=== PATIENT | female | born 1950 | race Caucasian/White ===

== ENCOUNTER 2018-12-04 10:00 | Outpatient (CLI) | payer MEDICARE, OTHER, SELFPAY ==
[2018-12-04 11:23] LABS: HCT 39.8 % (36.0-46.0); Mean Corp. HGB Concentration 32.7 g/dL (32.0-36.0); Mean Corpuscular Hemoglobin 28.2 pg (27.0-33.0); Mean Corpuscular Volume 86.3 fL (80-95); Mean Platelet Volume 9.9 fL (8.0-11.0); Platelet Count 347 x1000/uL (130-400); RBC 4.61 m/cumm (4.00-5.20); RBC Distribution Width 13.8 % (11.7-14.6); White Blood Cell Count 6.16 k/cumm (4.4-10.8)
[2018-12-04 11:49] LABS: ALT 28 U/L (12-78); AST 22 U/L (15-37); Albumin 3.8 g/dL (3.4-5.0); Alkaline Phosphatase 63 U/L (46-116); Anion Gap 9.3 mmol/L (3-11); BUN 16 mg/dL (7-18); Bilirubin, Total 0.3 mg/dL (0.2-1.0); CO2 28.7 mmol/L (21.0-32.0); CREATININE 0.77 mg/dL (0.55-1.02); Calcium 9.5 mg/dL (8.5-10.1); Chloride 103 mmol/L (98-107); Glucose 83 mg/dL (70-100); Potassium 4.3 mmol/L (3.5-5.1); Sodium 141 mmol/L (136-145); TSH 3.06 uIU/mL (0.358-3.74)
[2018-12-04 18:47] LABS: Vitamin B12 581 pg/mL (193-986)
== END 2018-12-04 10:20 ==
PROVIDERS: PCP Family Medicine; Visit Provider Family Medicine
DX: R53.83 Other fatigue (principal); E53.8 Deficiency of other specified B group vitamins
CPT/HCPCS: 80053; 85027; 82607; 84443

== ENCOUNTER 2019-02-12 09:37 | Outpatient (CLI) | payer MEDICARE, OTHER, SELFPAY ==
[2019-02-12 12:59] LABS: Iron 51 ug/dL (50-175); Total Iron Binding Capacity 355 ug/dL (250-450); Transferrin Sat 14 % (15-50)
[2019-02-12 13:12] LABS: Ferritin 33 ng/mL (8-388)
== END 2019-02-12 09:57 ==
PROVIDERS: PCP Family Medicine; Visit Provider Family Medicine
DX: E61.1 Iron deficiency (principal)
CPT/HCPCS: 82728; 83540; 83550

== ENCOUNTER 2020-07-05 13:02 | Outpatient (REF) | payer MEDICARE, SELFPAY ==
[2020-07-05 13:41] LABS: Iron 57 ug/dL (50-170); Total Iron Binding Capacity 425 ug/dL (250-450); Transferrin Sat 13 % (15-50)
[2020-07-05 14:02] LABS: Abs Immature Grans 0.02 10^3/uL (0.0-0.06); Absolute Basophil Count 0.09 10^3/uL (0.0-0.2); Absolute Eosinophil Count 0.51 10^3/uL (0.0-0.7); Absolute Lymphocyte Count 2.28 10^3/uL (1.2-3.4); Absolute Monocyte Count 0.58 10^3/uL (0.1-0.8); Absolute Neutrophil Count 3.89 10^3/uL (1.2-6.7); Basophils % 1.2; Eosinophils % 6.9; HCT 41.1 % (36.0-46.0); HGB 13.2 g/dL (11.2-15.7); Immature Grans % 0.3; Lymphocytes % 30.9; MCH 27.3 pg (27.0-33.0); MCHC 32.1 % (32.0-36.0); MCV 85.1 fL (80-95); MPV 9.9 fL (8.0-11.0); Monocytes % 7.9; Neutrophils % 52.8; Nucleated RBC 0 %; Platelet Count 360 10^3/uL (130-400); RBC 4.83 10^6/uL (3.93-5.22); RDW 14.2 % (11.7-14.6); RDW-SD 43.7 fL; WBC 7.37 10^3/uL (4.4-10.8)
[2020-07-05 14:06] LABS: ALT 22 U/L (14-59); AST 15 U/L (15-37); Albumin 4.1 g/dL (3.4-5.0); Alkaline Phosphatase 75 U/L (46-116); Anion Gap 5.3 mmol/L (3-11); BUN 22 mg/dL (7-18); Bilirubin, Total 0.4 mg/dL (0.2-1.0); CO2 29.7 mmol/L (21.0-32.0); CREATININE 0.92 mg/dL (0.55-1.02); Calcium 9.5 mg/dL (8.5-10.1); Calculated LDL 158 mg/dL (<100); Chloride 105 mmol/L (98-107); Cholesterol 242 mg/dL (<200); Ferritin 27 ng/mL (8-252); Glucose 90 mg/dL (74-106); HDL Cholesterol 61 mg/dL (40-60); Magnesium 1.9 mg/dL (1.8-2.4); Potassium 3.9 mmol/L (3.5-5.1); Sodium 140 mmol/L (136-145); Total Protein 7.3 g/dL (6.4-8.2); Triglyceride 118 mg/dL (<150); Vitamin B12 687 pg/mL (193-986)
== END 2020-07-05 13:22 ==
LOC: LBN 13:02
PROVIDERS: PCP Family Medicine; Visit Provider Family Medicine
DX: R53.83 Other fatigue (principal); E83.42 Hypomagnesemia; Z98.890 Other specified postprocedural states; Z96.651 Presence of right artificial knee joint
CPT/HCPCS: 80053; 80061; 82607; 82728; 83540; 83550; 83735; 85025

== ENCOUNTER 2020-12-14 10:45 | Outpatient (CLI) | payer MEDICARE, SELFPAY ==
[2020-12-14 21:36] LABS: COVID-19 RT-PCR UVMMC Result Negative (Negative)
== END 2020-12-14 10:46 | disposition home or self-care (01) ==
LOC: LBO 10:46
PROVIDERS: PCP Family Medicine; Visit Provider Family Medicine
DX: Z20.822 Contact with and (suspected) exposure to COVID-19 (principal)
CPT/HCPCS: U0003; U0005

== ENCOUNTER 2020-12-17 14:40 | Outpatient (REF) | payer MEDICARE, SELFPAY ==
[2020-12-19 15:24] LABS: COVID-19 RT-PCR UVMMC Result Negative (Negative)
== END 2020-12-17 14:41 | disposition home or self-care (01) ==
LOC: LBN 14:40
PROVIDERS: PCP Family Medicine; Visit Provider Emergency Medicine
DX: Z20.822 Contact with and (suspected) exposure to COVID-19 (principal)
CPT/HCPCS: U0003

== ENCOUNTER 2021-04-27 17:01 | Outpatient (REF) | payer MEDICARE, SELFPAY ==
[2021-04-27 13:06] LABS: HCT 39.2 % (36.0-46.0); HGB 11.8 g/dL (11.2-15.7); MCH 25.1 pg (27.0-33.0); MCHC 30.1 % (32.0-36.0); MCV 83.2 fL (80-95); MPV 9.8 fL (8.0-11.0); Platelet Count 334 10^3/uL (130-400); RBC 4.71 10^6/uL (3.93-5.22); RDW 19.6 % (11.7-14.6); RDW-SD 59.1 fL; WBC 6.65 10^3/uL (4.4-10.8)
== END 2021-04-27 17:02 | disposition home or self-care (01) ==
LOC: LBN 17:01
PROVIDERS: PCP Family Medicine; Visit Provider Family Medicine
DX: R53.83 Other fatigue (principal)
CPT/HCPCS: 85027

== ENCOUNTER 2021-06-18 16:00 | Outpatient (REF) | payer MEDICARE, SELFPAY ==
[2021-06-20 00:46] LABS: COVID-19 RT-PCR UVMMC Result Negative (Negative)
== END 2021-06-18 16:01 | disposition home or self-care (01) ==
LOC: LBN 16:00
PROVIDERS: PCP Family Medicine; Visit Provider Physician Assistant
DX: J02.9 Acute pharyngitis, unspecified (principal); Z20.822 Contact with and (suspected) exposure to COVID-19
CPT/HCPCS: U0003; U0005; 87070

== ENCOUNTER 2021-06-28 15:20 | Outpatient (REF) | payer MEDICARE, SELFPAY ==
[2021-06-29 19:55] LABS: COVID-19 RT-PCR UVMMC Result Negative (Negative)
== END 2021-06-28 15:21 | disposition home or self-care (01) ==
LOC: LBN 15:20
PROVIDERS: PCP Family Medicine; Visit Provider Family Medicine
DX: Z20.822 Contact with and (suspected) exposure to COVID-19 (principal)
CPT/HCPCS: U0003; U0005

== ENCOUNTER 2021-06-30 16:29 | Outpatient (REF) | payer MEDICARE, SELFPAY ==
[2021-06-30 19:32] LABS: Abs Immature Grans 0.04 10^3/uL (0.0-0.06); Absolute Monocyte Count 0.57 10^3/uL (0.1-0.8); Basophils % 0.9; Eosinophils % 2.9; HCT 40.5 % (36.0-46.0); HGB 12.8 g/dL (11.2-15.7); Immature Grans % 0.4; Lymphocytes % 22.3; MCH 26.9 pg (27.0-33.0); MCHC 31.6 % (32.0-36.0); MCV 85.1 fL (80-95); MPV 9.8 fL (8.0-11.0); Monocytes % 5.1; Neutrophils % 68.4; Nucleated RBC 0 %; Platelet Count 376 10^3/uL (130-400); RBC 4.76 10^6/uL (3.93-5.22); RDW 15.4 % (11.7-14.6); RDW-SD 48.4 fL; WBC 11.22 10^3/uL (4.4-10.8)
[2021-06-30 19:34] LABS: Iron 51 ug/dL (50-170); Total Iron Binding Capacity 328 ug/dL (250-450); Transferrin Sat 16 % (15-50)
[2021-06-30 19:43] LABS: Absolute Eosinophil Count 0.33 10^3/uL (0.0-0.7); Absolute Neutrophil Count 7.67 10^3/uL (1.2-6.7)
[2021-06-30 19:44] LABS: ESR 29 mm/hr (0-30)
[2021-06-30 19:48] LABS: ALT 16 U/L (14-59); AST 19 U/L (15-37); Albumin 4.1 g/dL (3.4-5.0); Alkaline Phosphatase 70 U/L (46-116); Anion Gap 13.2 mmol/L (3-11); BUN 10 mg/dL (7-18); Bilirubin, Total 0.4 mg/dL (0.2-1.0); CO2 25.8 mmol/L (21.0-32.0); CREATININE 0.9 mg/dL (0.55-1.02); Calcium 9.4 mg/dL (8.5-10.1); Chloride 103 mmol/L (98-107); Ferritin 73 ng/mL (8-252); Glucose 74 mg/dL (74-106); Potassium 4.1 mmol/L (3.5-5.1); Sodium 142 mmol/L (136-145); TSH 2.59 uIU/mL (0.36-3.74); Total Protein 7.3 g/dL (6.4-8.2)
== END 2021-06-30 16:30 | disposition home or self-care (01) ==
LOC: LBN 16:29
PROVIDERS: PCP Family Medicine; Visit Provider Family Medicine
DX: R53.83 Other fatigue (principal); Z98.890 Other specified postprocedural states
CPT/HCPCS: 80053; 85652; 82728; 83540; 83550; 84443; 85025

== ENCOUNTER 2021-09-14 19:17 | Outpatient (REF) | payer MEDICARE, SELFPAY ==
[2021-09-15 20:16] LABS: COVID-19 RT-PCR UVMMC Result Negative (Negative)
== END 2021-09-14 19:18 | disposition home or self-care (01) ==
LOC: LBN 19:17
PROVIDERS: PCP Nurse Practitioner Family; Visit Provider Family Medicine
DX: Z20.822 Contact with and (suspected) exposure to COVID-19 (principal)
CPT/HCPCS: U0003; U0005

== ENCOUNTER 2021-10-10 07:58 | Outpatient (REF) | payer MEDICARE, SELFPAY ==
[2021-10-11 03:05] LABS: COVID-19 RT-PCR UVMMC Result Negative (Negative)
== END 2021-10-10 07:59 | disposition home or self-care (01) ==
LOC: LBN 07:58
PROVIDERS: PCP Nurse Practitioner Family; Visit Provider Family Medicine
DX: Z20.822 Contact with and (suspected) exposure to COVID-19 (principal)
CPT/HCPCS: U0003; U0005

== ENCOUNTER 2021-11-02 19:52 | Outpatient (REF) | payer MEDICARE, SELFPAY ==
[2021-11-04 10:17] LABS: COVID-19 RT-PCR UVMMC Result Negative (Negative)
== END 2021-11-02 19:53 | disposition home or self-care (01) ==
LOC: LBN 19:52
PROVIDERS: PCP Nurse Practitioner Family; Visit Provider Nurse Practitioner Family
DX: Z20.822 Contact with and (suspected) exposure to COVID-19 (principal)
CPT/HCPCS: U0003; U0005

== ENCOUNTER 2022-11-12 16:31 | Inpatient (IN) | payer MEDICARE, SELFPAY ==
[2022-11-12] VITALS (27 sets, daily range): BP systolic 112–154; BP diastolic 56–119; PULSE 73–107; RESP 12–34; TEMP 36.6–37.3; O2SAT 90–97
--- NOTE | 2022-11-12 16:30 | RT.EKG_ITS ---
APPROVED REPORT Exam: Resting ECG Reason for Exam: sob Patient Location: E HR:87 bpm ECG Measurements Heart Rate 87 AXIS MT 125 P 23 QRSd 93 QRS -10 QT 388 T -3 QTc 466 Conclusion Sinus rhythm...normal P axis, V-rate 60- 99
--- NOTE | 2022-11-12 17:00 | DI.RAD_ITS ---
Exam(s) XR PORTABLE CHEST AP EXAM: XR PORTABLE CHEST AP CLINICAL HISTORY: sob, Flu + TECHNIQUE: 2D digital imaging was performed. COMPARISON: CR CHEST 2 VIEWS PA,LAT from 05/02/2017 FINDINGS: A small to moderate size hiatal hernia is noted LUNGS: The bilateral patchy infiltrates. No pleural abnormality seen. HEART: Normal size. AORTA: Normal diameter. Calcification at arch. BONES: Unremarkable for age. Soft tissues: Unremarkable. IMPRESSION: Patchy bilateral infiltrates. DATA REPOSITORY: RADIATION DOSE DELIVERED:
[2022-11-12 17:17] LABS: Abs Immature Grans 0.07 10^3/uL (0.0-0.06); Absolute Basophil Count 0.05 10^3/uL (0.0-0.2); Absolute Eosinophil Count 0.59 10^3/uL (0.0-0.7); Absolute Monocyte Count 0.59 10^3/uL (0.1-0.8); Basophils % 0.5; Eosinophils % 5.9; HCT 38.2 % (36.0-46.0); HGB 12.2 g/dL (11.2-15.7); Immature Grans % 0.7; MCH 26.6 pg (27.0-33.0); MCHC 31.9 % (32.0-36.0); MCV 83 fL (80-95); MPV 9.2 fL (8.0-11.0); Monocytes % 5.9; Platelet Count 378 10^3/uL (130-400); RBC 4.58 10^6/uL (3.93-5.22); RDW 14.5 % (11.7-14.6); RDW-SD 44.1 fL
--- NOTE | 2022-11-12 17:26 | ED.GENADUL_ITS ---
Discharge Plan Disposition Patient Disposition: Admit to [facility] Discharge Details Chief Complaint: SOB Clinical Impression: Influenza A, Pneumonia, Hypoxia Primary Care Provider: Tina Rock ED Provider: Speedy Benitez [place] Meds and New Rx's Prescriptions: No Action cholecalciferol (vitamin D3) 25 mcg (1,000 unit) capsule 25 mcg PO DAILY biotin 5,000 mcg tablet,disintegrating 10,000 mcg PO DAILY Fish Oil 340-1,000 mg capsule 1 cap PO DAILY melatonin 10 mg tablet 10 mg PO HS PRN oseltamivir 75 mg capsule 75 mg PO BID 5 Days Qty: 10 0RF albuterol sulfate 1.25 mg/3 mL solution for nebulization 1.25 mg inhalation TID PRN (Reason: shortness of breath or wheezing) Qty: 90 0RF escitalopram oxalate [Lexapro] 20 mg tablet 10 - 20 mg PO DAILY Qty: 90 3RF fluticasone propionate [Flovent HFA] 110 mcg/actuation HFA aerosol inhaler 110 mcg Inhalation BID PRN (Reason: bronchospasm) Qty: 1 6RF albuterol sulfate 90 mcg/actuation HFA aerosol inhaler 2 puff IH QID PRN (Reason: shortness of breath or wheezing) Qty: 18 6RF amoxicillin 500 mg tablet 2,000 mg PO ONCE Qty: 16 2RF Rx Instructions: take 1 hour before procedure clonazepam 0.5 mg tablet 0.25 - 0.5 mg PO QHS PRN (Reason: insomnia) Qty: 30 2RF oxybutynin chloride 5 mg tablet 5 mg PO DAILY Qty: 90 3RF cetirizine [Zyrtec] 10 mg tablet 10 mg PO DAILY PRN (Reason: allergy symptoms) Qty: 90 3RF amlodipine 5 mg tablet 5 mg PO DAILY Qty: 90 3RF omeprazole 20 mg capsule,delayed release(DR/EC) 20 mg PO DAILY PRN (Reason: gerd) Qty: 90 1RF sertraline 25 mg tablet 25 mg PO DAILY Qty: 90 3RF Hold Instructions: Changed by Provider Rx Instructions: Take 1 tablet daily in addition to the 100mg tablet sertraline 100 mg tablet 100 mg PO DAILY Qty: 90 3RF Rx Instructions: Take 1 tablet daily in addition to the 25mg tablet sennosides [Senokot] 1 TAB tablet 4 tab PO HS Medical Decision Making 72-year-old female flu a positive presents for worsening cough and shortness of breath. O2 sat is in the mid 80s on room air, she does require 2 L nasal cannula to keep O2 sat above 93%. Clinically she appears well, nontoxic. Plan to obtain IV access, obtain routine screening laboratory values, chest x-ray, flu, RSV, COVID swab. Will provide IV Solu-Medrol as well as a duo and albuterol neb. Patient received neb treatments, heart rate now 108, wheezing clear, increased airflow but O2 sat still remains in the mid 80s if she is taken off of her oxygen. Laboratory values reveal no evidence of leukocytosis. Her potassium is 2.9. Will replenish both with oral and IV potassium. Creatinine 0.8 with a GFR of 77.75. COVID and RSV negative. Flu a positive. X-ray reveals bilateral pneumonia. Positive, with bilateral pneumonia, hypoxia, will likely require admission. We will add on a lactate, procalcitonin, blood cultures, give IV Rocephin and azithromycin. Case discussed with our hospitalist team, Dr. Man, who is agreeable to admission. This documentation was generated using [employer] dictation system, please disregard any oddities of phrase or misspellings. Medical Records Medical records reviewed: Yes I reviewed the patient's medical records. Imaging Data Radiologic Study: Attestation: I personally reviewed and interpreted this imaging study as follows: Imaging: X-Ray Radiologist's impression: PROCEDURE INFORMATION: Exam: XR Chest Exam date and time: 11/12/2022 5:01 PM Age: 72 years old Clinical indication: Other: SOB, flu + TECHNIQUE: Imaging protocol: Radiologic exam of the chest. Views: 1 view. COMPARISON: CR CHEST 2 VIEWS PA,LAT 02/05/2017 12:56 FINDINGS: Lungs: Bilateral patchy infiltrates. Pleural spaces: Unremarkable. No pleural effusion. No pneumothorax. Heart/Mediastinum: Cardiomegaly. Retrocardiac gastric hernia. Vasculature: Atherosclerotic disease. Bones/joints: Unremarkable for patient's age. IMPRESSION: Bilateral pneumonia Lab Data Lab results reviewed: Yes I reviewed the patient's lab results. Labs: 11/12/22 18:35 Blood Blood Culture - Pending 11/12/22 18:25 Blood Blood Culture - Pending Laboratory Tests Range/Units 11/12/22 11/12/22 11/12/22 16:55 16:55 17:15 WBC (4.4-10.8) 10^3/uL 10.00 RBC (3.93-5.22) 10^6/uL 4.58 Hgb (11.2-15.7) g/dL 12.2 Hct (36.0-46.0) % 38.2 MCV (80-95) fL 83 MCH (27.0-33.0) pg 26.6 L MCHC (32.0-36.0) % 31.9 L RDW (11.7-14.6) % 14.5 Plt Count (130-400) 10^3/uL 378 MPV (8.0-11.0) fL 9.2 Immature Gran % 0.7 Neutrophils % 70.0 Lymphocytes % 17.0 Monocytes % 5.9 Eosinophils % 5.9 Basophils % 0.5 Nucleated RBC % (0.0-0.3) % 0.0 Absolute Neutrophils (1.2-6.7) 10^3/uL 7.00 H Absolute Lymphocytes (1.2-3.4) 10^3/uL 1.70 Absolute Monocytes (0.1-0.8) 10^3/uL 0.59 Absolute Eosinophils (0.0-0.7) 10^3/uL 0.59 Absolute Basophils (0.0-0.2) 10^3/uL 0.05 VBG Lactate (0.6-1.4) mmol/L Sodium (136-145) mmol/L 144 Potassium (3.5-5.1) mmol/L 2.9 L Chloride (98-107) mmol/L 108 H Carbon Dioxide (21.0-32.0) mmol/L 27.3 Anion Gap (3-11) mmol/L 8.7 BUN (7-18) mg/dL 16 Creatinine (0.55-1.02) mg/dL 0.8 Est GFR (CKD-EPI 2020) (mL/min/1.73m2) 77.75 Glucose (74-106) mg/dL 114 H Calcium (8.5-10.1) mg/dL 9.3 Total Bilirubin (0.2-1.0) mg/dL 0.4 AST (15-37) U/L 40 H ALT (14-59) U/L 29 Alkaline Phosphatase (46-116) U/L 100 Total Protein (6.4-8.2) g/dL 7.8 Albumin (3.4-5.0) g/dL 3.3 L Procalcitonin ng/mL COVID-19 Source Nasopharynx SARS-CoV-2 (PCR) (Negative) Negative Influenza Type A (PCR) (Negative) Positive A Influenza Type B (PCR) (Negative) Negative RSV (PCR) (Negative) Negative Range/Units 11/12/22 18:35 WBC (4.4-10.8) 10^3/uL RBC (3.93-5.22) 10^6/uL Hgb (11.2-15.7) g/dL Hct (36.0-46.0) % MCV (80-95) fL MCH (27.0-33.0) pg MCHC (32.0-36.0) % RDW (11.7-14.6) % Plt Count (130-400) 10^3/uL MPV (8.0-11.0) fL Immature Gran % Neutrophils % Lymphocytes % Monocytes % Eosinophils % Basophils % Nucleated RBC % (0.0-0.3) % Absolute Neutrophils (1.2-6.7) 10^3/uL Absolute Lymphocytes (1.2-3.4) 10^3/uL Absolute Monocytes (0.1-0.8) 10^3/uL Absolute Eosinophils (0.0-0.7) 10^3/uL Absolute Basophils (0.0-0.2) 10^3/uL VBG Lactate (0.6-1.4) mmol/L 2.1 H Sodium (136-145) mmol/L Potassium (3.5-5.1) mmol/L Chloride (98-107) mmol/L Carbon Dioxide (21.0-32.0) mmol/L Anion Gap (3-11) mmol/L BUN (7-18) mg/dL Creatinine (0.55-1.02) mg/dL Est GFR (CKD-EPI 2020) (mL/min/1.73m2) Glucose (74-106) mg/dL Calcium (8.5-10.1) mg/dL Total Bilirubin (0.2-1.0) mg/dL AST (15-37) U/L ALT (14-59) U/L Alkaline Phosphatase (46-116) U/L Total Protein (6.4-8.2) g/dL Albumin (3.4-5.0) g/dL Procalcitonin ng/mL < 0.1 COVID-19 Source SARS-CoV-2 (PCR) (Negative) Influenza Type A (PCR) (Negative) Influenza Type B (PCR) (Negative) RSV (PCR) (Negative) ECG Data Attestation: I personally reviewed and interpreted this ECG (s) as follows: Interpretation: Sinus rhythm, ventricular rate of 87. No STEMI. HPI General Mode of arrival: ambulatory . Date/Time Provider Initiated Documentation: 11/12/22 16:46 . Limitations to Documentation: no limitations . Information obtained by: patient and family . HPI Narrative: This is a 72-year-old female, past medical history of hypertension, anxiety, hyperlipidemia, GERD, which she describes as mild asthma, developed flulike symptoms 1 week ago, diagnosed with flu a 6 days ago, initiated Tamiflu and finished the medication yesterday, reports worsening and ongoing cough, shortness of breath. She reports she had a fever last weekend but that has to resolved. Denies headache, chest pain, abdominal pain, nausea, vomiting, pain or swelling in her calves. She took [id number] Mucinex with little relief of her symptoms. She received a neb machine 2 days ago and has used her home neb machine once daily with little relief. Related Data Home Medications Medication Instructions Recorded Confirmed sennosides 8.6 mg tablet (Senokot) 4 tab PO HS 04/15/15 11/12/22 biotin 5,000 mcg disintegrating 10,000 mcg PO DAILY 01/16/22 11/12/22 tablet cholecalciferol (vitamin D3) 25 25 mcg PO DAILY 01/16/22 11/12/22 mcg (1,000 unit) capsule melatonin 10 mg tablet 10 mg PO HS PRN 01/16/22 11/12/22 omega-3 fatty acids-fish oil 340 1 cap PO DAILY 01/16/22 11/12/22 mg-1,000 mg capsule (Fish Oil) fluticasone propionate 110 110 mcg inhalation BID PRN 02/20/22 11/12/22 mcg/actuation HFA aerosol inhaler bronchospasm #1 ea (Flovent HFA) albuterol sulfate 90 mcg/actuation 2 puff inhalation QID PRN 02/22/22 11/12/22 aerosol inhaler shortness of breath or wheezing #18 grams amoxicillin 500 mg tablet 2,000 mg PO ONCE #16 tabs 05/16/22 11/12/22 clonazepam 0.5 mg tablet 0.25 - 0.5 mg PO QHS PRN insomnia 07/25/22 11/12/22 #30 tabs oxybutynin chloride 5 mg tablet 5 mg PO DAILY #90 tab-caps 08/07/22 11/12/22 amlodipine 5 mg tablet 5 mg PO DAILY #90 tabs 09/06/22 11/12/22 cetirizine 10 mg tablet (Zyrtec) 10 mg PO DAILY PRN allergy 09/06/22 11/12/22 symptoms #90 tabs omeprazole 20 mg capsule,delayed 20 mg PO DAILY PRN gerd #90 09/06/22 11/12/22 release tab-caps sertraline 100 mg tablet 100 mg PO DAILY #90 tabs 09/18/22 11/12/22 sertraline 25 mg tablet 25 mg PO DAILY #90 tabs 09/18/22 11/12/22 Lexapro 20 mg tablet (escitalopram 10 - 20 mg PO DAILY #90 tabs 11/08/22 11/12/22 oxalate) albuterol sulfate 1.25 mg/3 mL 1.25 mg (3 mL) inhalation TID PRN 11/08/22 11/12/22 solution for nebulization shortness of breath or wheezing #90 mL oseltamivir 75 mg capsule 75 mg PO BID 5 days #10 caps 11/08/22 11/12/22 Previous Rx's Medication Instructions Recorded fluticasone propionate 110 110 mcg inhalation BID PRN 02/20/22 mcg/actuation HFA aerosol inhaler bronchospasm #1 ea (Flovent HFA) albuterol sulfate 90 mcg/actuation 2 puff inhalation QID PRN 02/22/22 aerosol inhaler shortness of breath or wheezing #18 grams amoxicillin 500 mg tablet 2,000 mg PO ONCE #16 tabs 05/16/22 clonazepam 0.5 mg tablet 0.25 - 0.5 mg PO QHS PRN insomnia 07/25/22 #30 tabs oxybutynin chloride 5 mg tablet 5 mg PO DAILY #90 tab-caps 08/07/22 amlodipine 5 mg tablet 5 mg PO DAILY #90 tabs 09/06/22 cetirizine 10 mg tablet (Zyrtec) 10 mg PO DAILY PRN allergy 09/06/22 symptoms #90 tabs omeprazole 20 mg capsule,delayed 20 mg PO DAILY PRN gerd #90 09/06/22 release tab-caps sertraline 100 mg tablet 100 mg PO DAILY #90 tabs 09/18/22 sertraline 25 mg tablet 25 mg PO DAILY #90 tabs 09/18/22 Lexapro 20 mg tablet (escitalopram 10 - 20 mg PO DAILY #90 tabs 11/08/22 oxalate) albuterol sulfate 1.25 mg/3 mL 1.25 mg (3 mL) inhalation TID PRN 11/08/22 solution for nebulization shortness of breath or wheezing #90 mL oseltamivir 75 mg capsule 75 mg PO BID 5 days #10 caps 11/08/22 Allergies Allergy/AdvReac Type Severity Reaction Status Date / Time hydrochlorothiazide Allergy Severe RASH Verified 11/12/22 16:40 latex Allergy Severe Skin Rash Verified 11/12/22 16:40 morphine AdvReac Intermediate Verified 11/12/22 16:40 respiratory depression on low dose venlafaxine AdvReac Intermediate INCREASED Verified 11/12/22 16:40 BP atenolol AdvReac Mild PALPITATION Verified 11/12/22 16:40 S bupropion AdvReac Mild Does not Verified 11/12/22 16:40 tolerate well lisinopril AdvReac Mild COUGH Verified 11/12/22 16:40 General Stated Complaint: SOB DARIAN: 3 Review of Systems Constitutional Constitutional: Denies fatigue, Reports fever(s) (Resolved) and Denies weakness ENT Ears, Nose, Mouth, and Throat: Denies neck pain Cardiovascular Cardiovascular: Denies chest pain and Reports dyspnea Respiratory Respiratory: Reports cough and Reports dyspnea Gastrointestinal Gastrointestinal: Denies abdominal pain, Denies diarrhea, Reports loose stools and Denies vomiting Genitourinary Genitourinary: Denies dysuria Musculoskeletal Musculoskeletal: Denies back pain and Denies neck pain Integumentary/Breasts Skin/Breast: Denies rash Neurologic Neurologic: Denies weakness Endocrine Endocrine: Denies fatigue Hematologic/Lymphatic Hematologic/Lymphatic: Denies easy bleeding and Denies easy bruising PFSH All Active Problems (Updated 11/12/22 @ 19:23 by SARA Briceño) Pneumonia (Acute) Hypoxia (Acute) Hypokalemia (Acute) Influenza A (Acute) Essential hypertension (Chronic) Hyperlipidemia (Chronic) Generalized anxiety disorder (Chronic) Major depressive disorder, recurrent (Chronic) GERD (gastroesophageal reflux disease) (Chronic) OCD (obsessive compulsive disorder) (Chronic) Osteopenia (Chronic) Dexa 2004. Does not desire further eval Reactive airway disease (Chronic) Benign paroxysmal positional vertigo (Chronic) Chronic rhinitis (Chronic) Urge incontinence (Chronic) Anosmia (Chronic) Since Moderna vaccine in 2020 Medical History COVID-19 virus infection (~12/2021) Hyperparathyroidism Vitamin B 12 deficiency Surgical History S/P parathyroidectomy (03/10/05) S/P NICOLAS-BSO (total abdominal hysterectomy and bilateral salpingo-oophorectomy) (~1989) Status post total left knee replacement (~04/2015) Family History Mother , CHF at age 85. Diabetes Essential hypertension Personal history of malignant neoplasm Heart disease Hyperlipidemia Hyperparathyroidism Kidney calculi Father , LUNG CANCER at age 66. Alcohol abuse Essential hypertension Personal history of malignant neoplasm Heart disease Stroke Asthma Sister Depression Brother , MOTORCYCLE ACCIDENT at age 57. Alcohol abuse Essential hypertension Myocardial infarction Asthma Grandfather Alcohol abuse Essential hypertension Grandmother Diabetes Son Essential hypertension Daughter Diabetes Depression Hyperparathyroidism Kidney calculi PATERNAL GRANDMOTHER , DIABETES at age 70. Diabetes PATERNAL GRANDFATHER , ORGANIC BRAIN SYNDRO at age 60. Alcohol abuse Brother Substance abuse Cerebral palsy with spastic/ataxic diplegia FROM Brother , [place] at age 24. No problems noted. Social History Smoking/Tobacco Use Status: Never Second Hand Exposure: Yes Smoking risk assessment performed?: Yes Alcohol Intake: current Alcohol Intake frequency: a few times a month Drug use: Never Substance use type: does not use Household members: spouse Communication Needs: None Do you need help understanding health information?: Never Pets and animals: Yes Current gender identity: female What is your relationship status?: How often do you talk on the phone with friends or family?: three or more times per week Do you belong to any clubs or organized social groups?: no Panel score (0-1 are the most socially isolated patients): 2 What type of physical activity do you participate in: walking Frequency: 1-2 times per week Seatbelt use: always Helmet use: Yes Helmet use: always Drive intox or ride w/intox 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 Do you feel safe at home: Yes Do you feel safe in your relationship?: Yes Exam Const General: cooperative, healthy appearing, comfortable and no acute distress Orientation: alert and awake [facility] Head: normal to inspection, normocephalic and atraumatic Mouth: moist mucous membranes abnormal (Slightly dry) Eyes General: appearance normal, both eyes and all related structures Conjunctivae: conjunctivae normal Neck Neck: normal visual inspection, full ROM, no meningeal signs, trachea midline and supple Resp Effort & Inspection: normal respiratory effort and able to speak in complete s entences Auscultation: diminished lung sounds bilaterally in the lower lung coreas and wheezes (Rare bilateral upper lobes) Cardio Rate: regular rate Rhythm: regular rhythm GI Palpation: soft, not firm, no guarding and nontender Back/Spine/Pelvis Back: No back tenderness Skin General skin exam: no rashes or lesions noted Neuro General: patient alert, patient awake, moves all extremities and no focal motor deficits Cognition: normal cognition Speech: speech normal Gait: normal gait Sensory Exam: no sensory deficits noted Extrem General: normal to inspection, full ROM, capillary refill normal, no pedal edema and no calf tenderness Psych Appearance: grossly normal Mental Status: mental status grossly normal Course Vital Signs Vital signs: Vital Signs Temperature 36.9 C 11/12/22 16:34 Pulse 96 H 11/12/22 16:34 Respiratory Rate 21 11/12/22 16:34 Blood Pressure 144/66 H 11/12/22 16:34 Pulse Oximetry 95 11/12/22 16:34 Temperature 36.9 C 11/12/22 16:34 Temperature Source Axillary 11/12/22 16:34 Pulse 96 H 11/12/22 16:34 Respiratory Rate 21 11/12/22 16:34 Respiratory Effort 11/12/22 17:02 Blood Pressure 144/66 H 11/12/22 16:34 Blood Pressure Position Sitting 11/12/22 16:34 Pulse Oximetry 95 11/12/22 16:34 Oxygen Delivery Method Room Air 11/12/22 16:34 Oxygen Flow Rate 0 11/12/22 16:34 Pain Level 0 11/12/22 16:34 Lab/Test Results Lab/Test Results: Laboratory Tests Range/Units 11/12/22 16:55 WBC (4.4-10.8) 10^3/uL 10.00 RBC (3.93-5.22) 10^6/uL 4.58 Hgb (11.2-15.7) g/dL 12.2 Hct (36.0-46.0) % 38.2 MCV (80-95) fL 83 MCH (27.0-33.0) pg 26.6 L MCHC (32.0-36.0) % 31.9 L RDW (11.7-14.6) % 14.5 Plt Count (130-400) 10^3/uL 378 MPV (8.0-11.0) fL 9.2 Immature Gran % 0.7 Neutrophils % 70.0 Lymphocytes % 17.0 Monocytes % 5.9 Eosinophils % 5.9 Basophils % 0.5 Nucleated RBC % (0.0-0.3) % 0.0 Absolute Neutrophils (1.2-6.7) 10^3/uL 7.00 H Absolute Lymphocytes (1.2-3.4) 10^3/uL 1.70 Absolute Monocytes (0.1-0.8) 10^3/uL 0.59 Absolute Eosinophils (0.0-0.7) 10^3/uL 0.59 Absolute Basophils (0.0-0.2) 10^3/uL 0.05
[2022-11-12 17:33] LABS: ALT 29 U/L (14-59); AST 40 U/L (15-37); Albumin 3.3 g/dL (3.4-5.0); Alkaline Phosphatase 100 U/L (46-116); Anion Gap 8.7 mmol/L (3-11); BUN 16 mg/dL (7-18); Bilirubin, Total 0.4 mg/dL (0.2-1.0); CO2 27.3 mmol/L (21.0-32.0); CREATININE 0.8 mg/dL (0.55-1.02); Calcium 9.3 mg/dL (8.5-10.1); Chloride 108 mmol/L (98-107); Estimated GFR 77.75 (mL/min/1.73m2); Glucose 114 mg/dL (74-106); Sodium 144 mmol/L (136-145); Total Protein 7.8 g/dL (6.4-8.2)
[2022-11-12 17:35] LABS: Potassium 2.9 mmol/L (3.5-5.1)
--- NOTE | 2022-11-12 17:43 | DI.VRAD_ITS ---
PROCEDURE INFORMATION: Exam: XR Chest Exam date and time: 11/12/2022 5:01 PM Age: 72 years old Clinical indication: Other: SOB, flu + TECHNIQUE: Imaging protocol: Radiologic exam of the chest. Views: 1 view. COMPARISON: CR CHEST 2 VIEWS PA,LAT 02/05/2017 12:56 FINDINGS: Lungs: Bilateral patchy infiltrates. Pleural spaces: Unremarkable. No pleural effusion. No pneumothorax. Heart/Mediastinum: Cardiomegaly. Retrocardiac gastric hernia. Vasculature: Atherosclerotic disease. Bones/joints: Unremarkable for patient's age. IMPRESSION: Bilateral pneumonia. Dictated and Authenticated by: Lyla Benoit MD. Ordering:HANNAH Ruff MD
[2022-11-12] MEDS: methylPREDNISolone SUCC 125 MG VIAL IVP (17:50)
[2022-11-12] MEDS: Albuterol/Ipratropium 3 ML UPD VIAL UPD (17:50)
[2022-11-12] MEDS: Albuterol 2.5 MG/3 ML INH SOLN VIAL UPD (17:50)
[2022-11-12 17:56] LABS: COVID-19 PCR Negative (Negative); Influenza A PCR Positive (Negative); Influenza B PCR Negative (Negative); RSV PCR Negative (Negative)
[2022-11-12 17:58] LABS: Source Nasopharynx
--- NOTE | 2022-11-12 18:26 | HPE_ITS ---
Date of service: 11/12/22 Time of Service: 18:27 Assessment and Plan Assessment and plan (1) Influenza A: Status: Acute Assessment and plan: Symptoms began one week ago. Last dose of Tamiflu tonight. Ongoing SOA, hypoxemia intermittently noted in ED ED physician had concerns regarding a possible bacterial superinfection and initiated Rocephin and Azithromycin. Procal is negative. WBC not elevated. Afebrile. Lactate mildly elevated. Hold further antibiotics. IS, Acapella Albuterol nebs prn. (2) Essential hypertension: Status: Chronic Assessment and plan: Cont amlodipine and monitor BP (3) Generalized anxiety disorder: Status: Chronic Assessment and plan: Cont nightly clonazepam and Lexapro/Sertraline. (4) Major depressive disorder, recurrent: Status: Chronic Assessment and plan: As above. She dose have a variable dose of lexapro prescribed; 10-20mg daily. (5) Hypokalemia: Status: Acute Assessment and plan: K of 2.9. Pt not on a diuretic. Oral and IV replacement. Monitor. History of Present Illness History of Present Illness Chief Complaint: Shortness of breath Narrative: This is a 72 yo female with a PMH of HTN, HLD, depression, OCD, Gen. anxiety disorder, reactive airway disease, BPPV, chronic rhinitis. She was dx with influenza A on 11/08/21 and Tamiflu prescribed (last dose to be taken on night of this admission). Her symptoms began 11/04/22. She stated she has been taking mucinex w/o benefit. She hasn't been sleeping well. Bilateral lower rib cage discomfort from coughing. Cough is most dry. In the ED her WBC count was normal. No fever or hypotension. K was low at 2.9. PRocalcitonin negative. lactate mildly elevated at 2.1. CXR with bilateral infiltrates. No consolidations. O2 saturations reportedly in the mid to upper 80's. She was placed on 2L NC. ED physician saw concern for possible superimposed bacterial infection and initiated Rocephin and IV Azithromycin. Review of Systems All systems reviewed & are unremarkable except as noted in HPI and below PFSH All Active Problems (Updated 11/12/22 @ 19:23 by SARA Briceño) Pneumonia (Acute) Hypoxia (Acute) Hypokalemia (Acute) Influenza A (Acute) Essential hypertension (Chronic) Hyperlipidemia (Chronic) Generalized anxiety disorder (Chronic) Major depressive disorder, recurrent (Chronic) GERD (gastroesophageal reflux disease) (Chronic) OCD (obsessive compulsive disorder) (Chronic) Osteopenia (Chronic) Dexa 2004. Does not desire further eval Reactive airway disease (Chronic) Benign paroxysmal positional vertigo (Chronic) Chronic rhinitis (Chronic) Urge incontinence (Chronic) Anosmia (Chronic) Since Moderna vaccine in 2020 Medical History COVID-19 virus infection (~12/2021) Hyperparathyroidism Vitamin B 12 deficiency Surgical History S/P parathyroidectomy (03/10/05) S/P NICOLAS-BSO (total abdominal hysterectomy and bilateral salpingo-oophorectomy) (~1989) Status post total left knee replacement (~04/2015) Family History Mother , CHF at age 85. Diabetes Essential hypertension Personal history of malignant neoplasm Heart disease Hyperlipidemia Hyperparathyroidism Kidney calculi Father , LUNG CANCER at age 66. Alcohol abuse Essential hypertension Personal history of malignant neoplasm Heart disease Stroke Asthma Sister Depression Brother , MOTORCYCLE ACCIDENT at age 57. Alcohol abuse Essential hypertension Myocardial infarction Asthma Grandfather Alcohol abuse Essential hypertension Grandmother Diabetes Son Essential hypertension Daughter Diabetes Depression Hyperparathyroidism Kidney calculi PATERNAL GRANDMOTHER , DIABETES at age 70. Diabetes PATERNAL GRANDFATHER , ORGANIC BRAIN SYNDRO at age 60. Alcohol abuse Brother Substance abuse Cerebral palsy with spastic/ataxic diplegia FROM Brother , [place] at age 24. No problems noted. Social History Smoking/Tobacco Use Status: Never Second Hand Exposure: Yes Smoking risk assessment performed?: Yes Alcohol Intake: current Alcohol Intake frequency: a few times a month Drug use: Never Substance use type: does not use Household members: spouse Communication Needs: None Do you need help understanding health information?: Never Pets and animals: Yes Current gender identity: female What is your relationship status?: How often do you talk on the phone with friends or family?: three or more times per week Do you belong to any clubs or organized social groups?: no Panel score (0-1 are the most socially isolated patients): 2 What type of physical activity do you participate in: walking Frequency: 1-2 times per week Seatbelt use: always Helmet use: Yes Helmet use: always Drive intox or ride w/intox electric mule driver: No Do you feel safe at home: Yes Do you feel safe in your relationship?: Yes Meds Allergies and Home Medications Allergies Allergy/AdvReac Type Severity Reaction Status Date / Time hydrochlorothiazide Allergy Severe RASH Verified 11/12/22 16:40 latex Allergy Severe Skin Rash Verified 11/12/22 16:40 morphine AdvReac Intermediate Verified 11/12/22 16:40 respiratory depression on low dose venlafaxine AdvReac Intermediate INCREASED Verified 11/12/22 16:40 BP atenolol AdvReac Mild PALPITATION Verified 11/12/22 16:40 S bupropion AdvReac Mild Does not Verified 11/12/22 16:40 tolerate well lisinopril AdvReac Mild COUGH Verified 11/12/22 16:40 Home Medications Medication Instructions Recorded Confirmed Type sennosides 8.6 mg tablet (Senokot) 4 tab PO HS 04/15/15 11/12/22 History biotin 5,000 mcg disintegrating 10,000 mcg PO DAILY 01/16/22 11/12/22 History tablet cholecalciferol (vitamin D3) 25 25 mcg PO DAILY 01/16/22 11/12/22 History mcg (1,000 unit) capsule melatonin 10 mg tablet 10 mg PO HS PRN 01/16/22 11/12/22 History omega-3 fatty acids-fish oil 340 1 cap PO DAILY 01/16/22 11/12/22 History mg-1,000 mg capsule (Fish Oil) fluticasone propionate 110 110 mcg inhalation BID PRN 02/20/22 11/12/22 Rx mcg/actuation HFA aerosol inhaler bronchospasm #1 ea (Flovent HFA) albuterol sulfate 90 mcg/actuation 2 puff inhalation QID PRN 02/22/22 11/12/22 Rx aerosol inhaler shortness of breath or wheezing #18 grams amoxicillin 500 mg tablet 2,000 mg PO ONCE #16 tabs 05/16/22 11/12/22 Rx clonazepam 0.5 mg tablet 0.25 - 0.5 mg PO QHS PRN insomnia 07/25/22 11/12/22 Rx #30 tabs oxybutynin chloride 5 mg tablet 5 mg PO DAILY #90 tab-caps 08/07/22 11/12/22 Rx amlodipine 5 mg tablet 5 mg PO DAILY #90 tabs 09/06/22 11/12/22 Rx cetirizine 10 mg tablet (Zyrtec) 10 mg PO DAILY PRN allergy 09/06/22 11/12/22 Rx symptoms #90 tabs omeprazole 20 mg capsule,delayed 20 mg PO DAILY PRN gerd #90 09/06/22 11/12/22 Rx release tab-caps sertraline 100 mg tablet 100 mg PO DAILY #90 tabs 09/18/22 11/12/22 Rx sertraline 25 mg tablet 25 mg PO DAILY #90 tabs 09/18/22 11/12/22 Rx Lexapro 20 mg tablet (escitalopram 10 - 20 mg PO DAILY #90 tabs 11/08/22 11/12/22 Rx oxalate) albuterol sulfate 1.25 mg/3 mL 1.25 mg (3 mL) inhalation TID PRN 11/08/22 11/12/22 Rx solution for nebulization shortness of breath or wheezing #90 mL oseltamivir 75 mg capsule 75 mg PO BID 5 days #10 caps 11/08/22 11/12/22 Rx Exam Narrative Exam Narrative: Tired appearing 72 yo female. Hoarse voice. Const General: cooperative and no acute distress Nutritional Appearance: overweight Orientation: alert and oriented x3 Eyes General: appearance normal, both eyes and all related structures Sclera: sclerae normal Neck Neck: full ROM and no JVD Resp Effort & Inspection: normal respiratory effort Auscultation: rhonchi (soft coarseness throughout. ) Cardio Rate: tachycardic Rhythm: regular rhythm Heart Sounds: S1 normal, S2 normal and no murmurs GI Inspection: non-distended Palpation: nontender Skin General skin exam: no rashes or lesions noted Extrem General: no pedal edema and no calf tenderness Psych Appearance: grossly normal Mental Status: mental status grossly normal Speech and Movement: speech and movement normal Affect: blunted Results Labs Result diagrams: 11/12/22 16:55 11/12/22 16:55 Labs: Laboratory Results - last 24 hr 11/12/22 11/12/22 11/12/22 16:55 16:55 17:15 WBC 10.00 RBC 4.58 Hgb 12.2 Hct 38.2 MCV 83 MCH 26.6 L MCHC 31.9 L RDW 14.5 Plt Count 378 MPV 9.2 Immature Gran % 0.7 Neutrophils % 70.0 Lymphocytes % 17.0 Monocytes % 5.9 Eosinophils % 5.9 Basophils % 0.5 Nucleated RBC % 0.0 Absolute Neutrophils 7.00 H Absolute Lymphocytes 1.70 Absolute Monocytes 0.59 Absolute Eosinophils 0.59 Absolute Basophils 0.05 Sodium 144 Potassium 2.9 L Chloride 108 H Carbon Dioxide 27.3 Anion Gap 8.7 BUN 16 Creatinine 0.8 Est GFR (CKD-EPI 2020) 77.75 Glucose 114 H Calcium 9.3 Total Bilirubin 0.4 AST 40 H ALT 29 Alkaline Phosphatase 100 Total Protein 7.8 Albumin 3.3 L COVID-19 Source Nasopharynx SARS-CoV-2 (PCR) Negative Influenza Type A (PCR) Positive A Influenza Type B (PCR) Negative RSV (PCR) Negative Last Vital Signs Temp 36.9 C 11/12/22 16:34 Pulse 105 H 11/12/22 18:15 Resp 21 11/12/22 18:20 BP 142/61 H 11/12/22 18:15 Pulse Ox 97 11/12/22 18:23 Time Spent Time spent with Patient: 40-54 minutes Time was spent: preparing to see the patient(eg.review tests), obtaining and/or reviewing separately otained hiistory, ordering medications,tests, procedures, r eferring, communicating with other health healthcare or medical and indepentently interpreting results
--- NOTE | 2022-11-12 18:40 | NUR.NOTE ---
Report given to Speedy BARBA on Med surg. Nursing Note:
[2022-11-12] MEDS: cefTRIAXone 2 GM/50 ML BAG IVPB (18:43)
[2022-11-12] MEDS: AZITHROMYCIN 500 MG in Normal Saline 250 ML 250 MG IVPB (18:43)
[2022-11-12] MEDS: Potassium Chloride 20 MEQ TABCR 40 MEQ PO (18:44)
[2022-11-12 18:46] LABS: Lactate 2.1 mmol/L (0.6-1.4)
[2022-11-12] MEDS: POTASSIUM CHLORIDE 10 MEQ/100 ML BAG 100 MEQ IVPB (19:05)
[2022-11-12 19:16] LABS: Procalcitonin < 0.1 ng/mL
[2022-11-12 20:25] LABS: Lab Add On Test DONE
[2022-11-12 20:35] LABS: Magnesium 1.8 mg/dL (1.8-2.4)
[2022-11-12] MEDS: Oseltamivir 75 MG CAP PO (21:08)
[2022-11-12] MEDS: Enoxaparin 40 MG/0.4 ML SYR SC (21:09)
[2022-11-12] MEDS: Melatonin 3 MG TAB 9 MG PO (21:20)
[2022-11-12] MEDS: Potassium Chloride 20 MEQ TABCR PO (21:21)
[2022-11-13] VITALS (7 sets, daily range): BP systolic 133–148; BP diastolic 77–84; PULSE 75–92; RESP 18–24; TEMP 36.9–37.6; O2SAT 89–96
[2022-11-13 06:48] LABS: Lactate 0.6 mmol/L (0.6-1.4)
[2022-11-13 06:56] LABS: Abs Immature Grans 0.07 10^3/uL (0.0-0.06); Absolute Basophil Count 0.01 10^3/uL (0.0-0.2); Absolute Neutrophil Count 7.79 10^3/uL (1.2-6.7); Basophils % 0.1; HCT 34.2 % (36.0-46.0); HGB 10.8 g/dL (11.2-15.7); Immature Grans % 0.8; Lymphocytes % 9.9; MCH 26.2 pg (27.0-33.0); MCHC 31.6 % (32.0-36.0); MCV 83 fL (80-95); MPV 9.3 fL (8.0-11.0); Monocytes % 3.3; Neutrophils % 85.9; Platelet Count 346 10^3/uL (130-400); RBC 4.13 10^6/uL (3.93-5.22); RDW 14.6 % (11.7-14.6); RDW-SD 43.9 fL; WBC 9.07 10^3/uL (4.4-10.8)
[2022-11-13 07:11] LABS: ALT 31 U/L (14-59); AST 44 U/L (15-37); Albumin 2.9 g/dL (3.4-5.0); Alkaline Phosphatase 99 U/L (46-116); Anion Gap 10.1 mmol/L (3-11); BUN 11 mg/dL (7-18); Bilirubin, Total 0.4 mg/dL (0.2-1.0); CO2 25.9 mmol/L (21.0-32.0); CREATININE 0.6 mg/dL (0.55-1.02); Calcium 8.8 mg/dL (8.5-10.1); Chloride 107 mmol/L (98-107); Estimated GFR 94.72 (mL/min/1.73m2); Glucose 156 mg/dL (74-106); Sodium 143 mmol/L (136-145); Total Protein 7.1 g/dL (6.4-8.2)
[2022-11-13] MEDS: Oxybutynin 5 MG TAB PO (08:03)
[2022-11-13] MEDS: amLODIPine 5 MG TAB PO (08:03)
[2022-11-13] MEDS: Sertraline 25 MG TAB PO ×2 (08:03→11:51)
[2022-11-13] MEDS: Sertraline 100 MG TAB PO (08:04)
--- NOTE | 2022-11-13 08:32 | INITIAL_ITS ---
- If Service Date Differs Date of service: 11/13/22 Time of Service: 08:32 Care Management Initial Assess REASON FOR HOSPITALIZATION:: Influenza A, Hypokalemia PAST MEDICAL HISTORY/PAST SURGICAL HISTORY:: All Active Problems (Updated 11/12/22 @ 19:23 by SARA Briceño). Pneumonia (Acute). Hypoxia (Acute). Hypokalemia (Acute). Influenza A (Acute). Essential hypertension (Chronic). Hyperlipidemia (Chronic). Generalized anxiety disorder (Chronic). Major depressive disorder, recurrent (Chronic). GERD (gastroesophageal reflux disease) (Chronic). OCD (obsessive compulsive disorder) (Chronic). Osteopenia (Chronic). Dexa 2004. Does not desire further eval. Reactive airway disease (Chronic). Benign paroxysmal positional vertigo (Chronic). Chronic rhinitis (Chronic). Urge incontinence (Chronic). Anosmia (Chronic). Since Moderna vaccine in 2020. Medical History . COVID-19 virus infection (~12/2021). Hyperparathyroidism. Vitamin B 12 deficiency. Surgical History . S/P parathyroidectomy (03/10/05). S/P NICOLAS-BSO (total abdominal hysterectomy and bilateral salpingo-oophorectomy) (~1989). Status post total left knee replacement (~04/2015) PREVIOUS FUNCTIONAL STATUS/SOCIAL/FAMILY SUPPORTS:: Courtney is and lives in [facility] with her Tesfaye. She has two adult children Cindy and Hugh. 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 Michelle drives and is independant with her ADL's at baseline. CURRENT FUNCTIONAL STATUS:: Michelle was lying in bed using her ipad to rearrange her [employer] vet visit, when CM met with her. She is awake, alert and easily engages in conversation. Courtney has no concerns at this time. Per pt, she hasn't been able to get any sleep here. She had melatonin last night, which was uneffective. CM will follow. ADVANCE DIRECTIVES:: [facility] is Estephania Reynaldo Has patient been provided with info about the portal/API?: Yes Did the patient sign up for the portal?: Yes (Prior to admission) CODE STATUS:: Full Code INSURANCE COVERAGE / FINANCIAL ISSUES:: [employer]. Medicare. [place] CURRENT HOME/COMMUNITY SERVICES/EQUIPMENT:: None PRIMARY CARE PHYSICIAN:: Tina Rock NP. ([facility]) PATIENT/FAMILY EDUCATION NEEDS:: Review discharge instructions, limitations, medications and plan to follow up with community providers. Discuss ask me three and goals of self care. TRANSPORTATION:: Via private vehicle with family. PLAN:: Anticipate Michelle will discharge home via private vehicle with family, when medically ready per provider. She will follow up with her PCP and discharge plan of care as prescribed. CM will continue to support patient and her discharge planning needs.
[2022-11-13 11:25] LABS: Lab Add On Test DONE
[2022-11-13 11:55] LABS: NT-proBNP 1247 pg/mL (<300)
[2022-11-13] MEDS: Benzonatate 200 MG CAP PO ×2 (14:18→20:47)
--- NOTE | 2022-11-13 16:23 | PHA.REVIEW2 ---
Pharmacy Admission Review - Admission Clinical Review (Last Reviewed 11/12/22 @ 19:13 by SARA Briceño) Pneumonia (Acute) Hypoxia (Acute) Hypokalemia (Acute) Influenza A (Acute) hydrochlorothiazide Allergy (Severe, Verified 11/12/22 16:40) RASH latex Allergy (Severe, Verified 11/12/22 16:40) Skin Rash morphine Adverse Reaction (Intermediate, Verified 11/12/22 16:40) respiratory depression on low dose venlafaxine Adverse Reaction (Intermediate, Verified 11/12/22 16:40) INCREASED BP atenolol Adverse Reaction (Mild, Verified 11/12/22 16:40) PALPITATIONS bupropion Adverse Reaction (Mild, Verified 11/12/22 16:40) Does not tolerate well lisinopril Adverse Reaction (Mild, Verified 11/12/22 16:40) COUGH Resuscitation Status Full Code Height 5 ft 1 in Weight 67.8 kg - Renal Dosing Renal Dosing: BUN 11 mg/dL (7-18) 11/13/22 06:40 Creatinine 0.6 mg/dL (0.55-1.02) 11/13/22 06:40 Medications needing adjustments: Reviewed List of meds needing interventions: eCrCL 44 ml/min, tamiflu is renally dosed - Anticoagulation Anticoagulation: Hgb 10.8 g/dL (11.2-15.7) L 11/13/22 06:40 Hct 34.2 % (36.0-46.0) L 11/13/22 06:40 Plt Count 346 10^3/uL (130-400) 11/13/22 06:40 Creatinine 0.6 mg/dL (0.55-1.02) 11/13/22 06:40 DVT Prophylaxis: Reviewed Medications: Enoxaparin - Opiate Usage Evaluate Pain Scale/Pains Meds: N/A - Relevant Labs Sodium 143 mmol/L (136-145) 11/13/22 06:40 Potassium 4.0 mmol/L (3.5-5.1) D 11/13/22 06:40 Chloride 107 mmol/L (98-107) 11/13/22 06:40 Magnesium 1.8 mg/dL (1.8-2.4) 11/12/22 18:35 Electrolytes, C-Reactive P, ESR: Reviewed - DM Control DM Control: Glucose 156 mg/dL (74-106) H 11/13/22 06:40 DM Control: N/A - Cardiac Review Cardiac Review: NT-Pro-B Natriuret Pep 1247 pg/mL (<300) H 11/13/22 06:40 BP, HR, EF%: Reviewed - Qtc Review If Elevated, List meds needing intervention: QTc 466 on admission - IV to PO Switch IV Medications: Reviewed - Home Meds Home Med List reviewed: Intervened Relevent Home Meds Not ordered & why?: updated, all ordered - Current meds Current Medication Order Review: Reviewed (extended tamiflu course another 5 days due to severity illness; received abx in ED but holding subsequent dosing as no other indicators of infection)
[2022-11-13] MEDS: Enoxaparin 40 MG/0.4 ML SYR SC (18:06)
--- NOTE | 2022-11-13 18:12 | W.PM.PROGNOT ---
Date of Service Date of service: 11/13/22 Time of Service: 18:12 Assessment and Plan Assessment and plan (1) Influenza A: Status: Acute Assessment and plan: Extend tamiflu. Add antitussives, prednisone. Encourage IS, acapella. No role for abx - procalcitonin negative. Off of O2 - would check exercise oximetry prior to d/c. (2) Essential hypertension: Status: Chronic Assessment and plan: Continue amlodipine (3) Generalized anxiety disorder: Status: Chronic Assessment and plan: Continue SSRI + clonazepam. (4) Major depressive disorder, recurrent: Status: Chronic Assessment and plan: Continue sertraline. (5) Hypokalemia: Status: Resolved Assessment and plan: Resolved. Recheck in am. (6) DVT prophylaxis: Status: Acute Assessment and plan: SC enoxaparin (7) Discharge planning issues: Status: Acute Assessment and plan: Full code Possible discharge home in the next 24 - 48 hrs Subjective Subjective Interval history since last seen: Ms Monae feels a little better. She does report an incessant cough, productive of white sputum. SOB is better. She is on RA now. Denied dizziness, chest pain, nausea. Did get short of breath on minimal exertion. Didn't sleep last night - too jittery. Exam Narrative Exam Narrative: General: Pleasant female who is on RA, sitting up in bed, coughing frequently, A&Ox3, speaking in full sentences. HEENT: EOMI, MMM Heart: RRR, no m/r/g Lungs: expiratory wheezing B Abdomen: soft, nontender, nondistended Extremities: trace edema BLEs Objective Last Vital Signs Temp 37.6 C H 11/13/22 15:41 Pulse 84 11/13/22 15:41 Resp 18 11/13/22 15:41 BP 137/84 11/13/22 15:41 Pulse Ox 92 11/13/22 15:41 Laboratory Results - last 24 hr 11/12/22 11/12/22 11/12/22 18:35 18:35 Unknown WBC RBC Hgb Hct MCV MCH MCHC RDW Plt Count MPV Immature Gran % Neutrophils % Lymphocytes % Monocytes % Eosinophils % Basophils % Nucleated RBC % Absolute Neutrophils Absolute Lymphocytes Absolute Monocytes Absolute Eosinophils Absolute Basophils VBG Lactate 2.1 H Sodium Potassium Chloride Carbon Dioxide Anion Gap BUN Creatinine Est GFR (CKD-EPI 2020) Glucose Calcium Magnesium 1.8 Total Bilirubin AST ALT Alkaline Phosphatase NT-Pro-B Natriuret Pep Total Protein Albumin Procalcitonin < 0.1 Add-On Test Request DONE 11/13/22 11/13/22 11/13/22 06:40 06:40 06:40 WBC 9.07 RBC 4.13 Hgb 10.8 L Hct 34.2 L MCV 83 MCH 26.2 L MCHC 31.6 L RDW 14.6 Plt Count 346 MPV 9.3 Immature Gran % 0.8 Neutrophils % 85.9 Lymphocytes % 9.9 Monocytes % 3.3 Eosinophils % 0.0 Basophils % 0.1 Nucleated RBC % 0.0 Absolute Neutrophils 7.79 H Absolute Lymphocytes 0.90 L Absolute Monocytes 0.30 Absolute Eosinophils 0.00 Absolute Basophils 0.01 VBG Lactate 0.6 Sodium 143 Potassium 4.0 D Chloride 107 Carbon Dioxide 25.9 Anion Gap 10.1 BUN 11 Creatinine 0.6 Est GFR (CKD-EPI 2020) 94.72 Glucose 156 H Calcium 8.8 Magnesium Total Bilirubin 0.4 AST 44 H ALT 31 Alkaline Phosphatase 99 NT-Pro-B Natriuret Pep Total Protein 7.1 Albumin 2.9 L Procalcitonin Add-On Test Request 11/13/22 11/13/22 06:40 06:40 WBC RBC Hgb Hct MCV MCH MCHC RDW Plt Count MPV Immature Gran % Neutrophils % Lymphocytes % Monocytes % Eosinophils % Basophils % Nucleated RBC % Absolute Neutrophils Absolute Lymphocytes Absolute Monocytes Absolute Eosinophils Absolute Basophils VBG Lactate Sodium Potassium Chloride Carbon Dioxide Anion Gap BUN Creatinine Est GFR (CKD-EPI 2020) Glucose Calcium Magnesium Total Bilirubin AST ALT Alkaline Phosphatase NT-Pro-B Natriuret Pep 1247 H Total Protein Albumin Procalcitonin Add-On Test Request DONE Time Spent with Patient Time Spent with Patient: 25-34 minutes Time was spent: preparing to see the patient(eg.review tests), obtaining and/or reviewing separately otained hiistory, ordering medications,tests, procedures, referring, communicating with other health medicare biller, indepentently interpreting results, counseling the patient and care coordination
[2022-11-13] MEDS: Ibuprofen 600 MG TAB PO (18:43)
[2022-11-13] MEDS: predniSONE 20 MG TAB 40 MG PO (18:43)
[2022-11-13] MEDS: guaiFENesin/CODEINE PHOSPHATE 10 ML CUP 5 ML PO (18:43)
[2022-11-13] MEDS: Oseltamivir 30 MG CAP PO (20:47)
[2022-11-13] MEDS: Albuterol 2.5 MG/3 ML INH SOLN VIAL UPD (20:49)
[2022-11-13] MEDS: clonazePAM 0.5 MG TAB PO (22:19)
[2022-11-13] MEDS: Potassium Chloride 20 MEQ TABCR PO (22:20)
[2022-11-14] VITALS (10 sets, daily range): BP systolic 130–148; BP diastolic 56–78; PULSE 68–89; RESP 16–78; TEMP 36.5–37.2; O2SAT 86–96
[2022-11-14 07:01] LABS: Abs Immature Grans 0.36 10^3/uL (0.0-0.06); Absolute Basophil Count 0.03 10^3/uL (0.0-0.2); Absolute Lymphocyte Count 1.03 10^3/uL (1.2-3.4); Absolute Monocyte Count 0.45 10^3/uL (0.1-0.8); Absolute Neutrophil Count 7.44 10^3/uL (1.2-6.7); Basophils % 0.3; HCT 33.9 % (36.0-46.0); HGB 11.1 g/dL (11.2-15.7); Immature Grans % 3.9; Lymphocytes % 11.1; MCHC 32.7 % (32.0-36.0); MCV 83 fL (80-95); MPV 9.4 fL (8.0-11.0); Monocytes % 4.8; Neutrophils % 79.9; Platelet Count 416 10^3/uL (130-400); RBC 4.11 10^6/uL (3.93-5.22); RDW 14.8 % (11.7-14.6); RDW-SD 44.9 fL; WBC 9.31 10^3/uL (4.4-10.8)
[2022-11-14 07:12] LABS: Anion Gap 8.1 mmol/L (3-11); BUN 18 mg/dL (7-18); CO2 27.9 mmol/L (21.0-32.0); CREATININE 0.7 mg/dL (0.55-1.02); Chloride 107 mmol/L (98-107); Estimated GFR 91.26 (mL/min/1.73m2); Glucose 138 mg/dL (74-106); Magnesium 1.9 mg/dL (1.8-2.4); PHOSPHORUS 4.1 mg/dL (2.6-4.7); Potassium 3.7 mmol/L (3.5-5.1); Sodium 143 mmol/L (136-145)
[2022-11-14] MEDS: predniSONE 20 MG TAB 40 MG PO (07:52)
[2022-11-14] MEDS: Benzonatate 200 MG CAP PO ×3 (07:52→19:44)
[2022-11-14] MEDS: Oxybutynin 5 MG TAB PO (07:52)
[2022-11-14] MEDS: Sertraline 100 MG TAB PO (07:52)
[2022-11-14] MEDS: Sertraline 50 MG TAB PO (07:52)
[2022-11-14] MEDS: amLODIPine 5 MG TAB PO (07:52)
[2022-11-14] MEDS: Oseltamivir 30 MG CAP PO ×2 (07:53→19:45)
--- NOTE | 2022-11-14 09:26 | PDOC.CMPRO ---
- If Service Date Differs Date of service: 11/14/22 Time of Service: 09:26 Care Management Progress Note S/O: Courtney continues to require close monitoring and treated for Influenza A. She is awake, alert and able to engage in conversation. She is currently 91% on RA and nursing is in the process of connecting her to a continuous O2 monitor. Courtney is looking forward to discharging home when medically ready. Per pt, she is considering short term medical leave if she is going to be out of work for a extended period of time. CM will continue to support patient and her discharge planning considerations. A: 72 year old female admitted to [facility] on 11/12/22 for Influenza A, Hypokalemia P: Anticipate, Courtney will discharge home via private vehicle with family, with no new [facility] services when medically ready. She will follow up with her PCP and discharge plan of care. CM will continue to support patient and her discharge planning considerations.
[2022-11-14] MEDS: Normal Saline Flush 10 ML SYR (13:29)
--- NOTE | 2022-11-14 15:33 | CHAPLAIN ---
Michelle was resting in bed when I visited She easily engaged in a conversation. She said she is starting to feel better but has been exhausted and not sleeping well at all. She's had COVID twice, and said this is worse for her. 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 I explained my role and offered support.
[2022-11-14] MEDS: Enoxaparin 40 MG/0.4 ML SYR SC (18:04)
[2022-11-14] MEDS: Normal Saline Flush 10 ML SYR IVP (18:23)
[2022-11-14] MEDS: guaiFENesin/CODEINE PHOSPHATE 10 ML CUP 5 ML PO (18:23)
[2022-11-14] MEDS: Furosemide 20 MG/2 ML VIAL IVP (18:24)
--- NOTE | 2022-11-14 18:45 | W.PM.PROGNOT ---
Date of Service Date of service: 11/14/22 Time of Service: 17:45 Assessment and Plan Assessment and plan (1) Influenza A: Status: Acute Assessment and plan: Continue tamiflu. Continue antitussives, prednisone. Will trial a dose of furosemide and consider an echocardiogram. Encourage IS, acapella. No role for abx - procalcitonin negative. Off of O2, being monitored on continuous pulse ox. (2) Essential hypertension: Status: Chronic Assessment and plan: Continue amlodipine (3) Generalized anxiety disorder: Status: Chronic Assessment and plan: Continue SSRI + clonazepam. (4) Major depressive disorder, recurrent: Status: Chronic Assessment and plan: Continue sertraline. (5) Hypokalemia: Status: Resolved Assessment and plan: Resolved. Recheck in am. (6) DVT prophylaxis: Status: Acute Assessment and plan: SC enoxaparin (7) Discharge planning issues: Status: Acute Assessment and plan: Full code Possible discharge home tomorrow. Subjective Subjective Interval history since last seen: Ms Monae feels better. She continues to cough. Denies dizziness, chest pain, nausea. Exam Narrative Exam Narrative: General: Pleasant female who is on RA, sitting up in bed, coughing less frequently, A&Ox3, speaking in full sentences, mildly dyspneic at rest HEENT: EOMI, MMM Heart: RRR, no m/r/g Lungs: rales at B bases; no wheezing today. Abdomen: soft, nontender, nondistended Extremities: + 1 edema BLEs Objective Last Vital Signs Temp 37.2 C 11/14/22 15:37 Pulse 71 11/14/22 15:37 Resp 18 11/14/22 15:37 BP 145/75 H 11/14/22 15:37 Pulse Ox 92 11/14/22 15:37 Laboratory Results - last 24 hr 11/14/22 11/14/22 06:15 06:15 WBC 9.31 RBC 4.11 Hgb 11.1 L Hct 33.9 L MCV 83 MCH 27.0 MCHC 32.7 RDW 14.8 H Plt Count 416 H MPV 9.4 Immature Gran % 3.9 Neutrophils % 79.9 Lymphocytes % 11.1 Monocytes % 4.8 Eosinophils % 0.0 Basophils % 0.3 Nucleated RBC % 0.0 Absolute Neutrophils 7.44 H Absolute Lymphocytes 1.03 L Absolute Monocytes 0.45 Absolute Eosinophils 0.00 Absolute Basophils 0.03 Sodium 143 Potassium 3.7 Chloride 107 Carbon Dioxide 27.9 Anion Gap 8.1 BUN 18 Creatinine 0.7 Est GFR (CKD-EPI 2020) 91.26 Glucose 138 H Calcium 9.0 Phosphorus 4.1 Magnesium 1.9 Time Spent with Patient Time Spent with Patient: 25-34 minutes Time was spent: preparing to see the patient(eg.review tests), obtaining and/or reviewing separately otained hiistory, ordering medications,tests, procedures, indepentently interpreting results, counseling the patient and care coordination
[2022-11-14] MEDS: Albuterol 2.5 MG/3 ML INH SOLN VIAL UPD (19:45)
[2022-11-14] MEDS: clonazePAM 0.5 MG TAB PO (23:11)
[2022-11-14] MEDS: Potassium Chloride 20 MEQ TABCR PO (23:11)
[2022-11-15] VITALS (7 sets, daily range): BP systolic 110–127; BP diastolic 67–78; PULSE 62–94; RESP 18–24; TEMP 36.5–37.6; O2SAT 92–94
[2022-11-15 07:43] LABS: Abs Immature Grans 0.64 10^3/uL (0.0-0.06); Absolute Lymphocyte Count 2.45 10^3/uL (1.2-3.4); Absolute Monocyte Count 1.15 10^3/uL (0.1-0.8); Basophils % 0.3; Eosinophils % 0.3; HCT 33.8 % (36.0-46.0); HGB 10.8 g/dL (11.2-15.7); Immature Grans % 5.6; Lymphocytes % 21.3; MCH 26.2 pg (27.0-33.0); MCV 82 fL (80-95); MPV 9.4 fL (8.0-11.0); Neutrophils % 62.5; Platelet Count 454 10^3/uL (130-400); RBC 4.12 10^6/uL (3.93-5.22); RDW 14.7 % (11.7-14.6)
[2022-11-15 07:53] LABS: Absolute Basophil Count 0.03 10^3/uL (0.0-0.2); Absolute Eosinophil Count 0.03 10^3/uL (0.0-0.7); Absolute Neutrophil Count 7.19 10^3/uL (1.2-6.7)
[2022-11-15 07:56] LABS: Anion Gap 7.6 mmol/L (3-11); BUN 23 mg/dL (7-18); CO2 29.4 mmol/L (21.0-32.0); CREATININE 0.8 mg/dL (0.55-1.02); Calcium 8.9 mg/dL (8.5-10.1); Chloride 105 mmol/L (98-107); Estimated GFR 77.75 (mL/min/1.73m2); Glucose 94 mg/dL (74-106); Magnesium 1.9 mg/dL (1.8-2.4); Potassium 3.2 mmol/L (3.5-5.1); Sodium 142 mmol/L (136-145)
[2022-11-15 08:12] LABS: Diff Comment Diff Reviewed; RBC Morphology Normal
[2022-11-15] MEDS: Benzonatate 200 MG CAP PO ×3 (08:45→20:37)
[2022-11-15] MEDS: amLODIPine 5 MG TAB PO (08:46)
[2022-11-15] MEDS: Oseltamivir 30 MG CAP PO ×2 (08:46→20:37)
[2022-11-15] MEDS: Sertraline 50 MG TAB PO (08:46)
[2022-11-15] MEDS: Sertraline 100 MG TAB PO (08:47)
[2022-11-15] MEDS: guaiFENesin 600 MG TABCR PO ×2 (08:49→20:37)
[2022-11-15] MEDS: predniSONE 20 MG TAB 40 MG PO (08:50)
[2022-11-15] MEDS: Oxybutynin 5 MG TAB PO (08:50)
[2022-11-15] MEDS: guaiFENesin/CODEINE PHOSPHATE 10 ML CUP 5 ML PO (10:52)
[2022-11-15] MEDS: Albuterol 2.5 MG/3 ML INH SOLN VIAL UPD (11:10)
[2022-11-15] MEDS: Potassium Chloride 20 MEQ TABCR 40 MEQ PO (11:10)
[2022-11-15] MEDS: Furosemide 20 MG/2 ML VIAL IVP (12:13)
[2022-11-15] MEDS: Normal Saline Flush 10 ML SYR IVP ×2 (12:14→15:33)
[2022-11-15] MEDS: cefTRIAXone 1 GM/50 ML BAG IVPB (12:14)
--- NOTE | 2022-11-15 12:20 | W.PM.PROGNOT ---
Date of Service Date of service: 11/15/22 Time of Service: 10:45 Assessment and Plan Assessment and plan (1) Influenza A: Status: Acute Assessment and plan: Continue tamiflu. Continue antitussives, prednisone. Repeat furosemide and await echo - suspect that there is a cardiogenic process contributing to the shortness of breath. Scheduled + prn nebs. Add abx as sputum is now purulent. Encourage IS, acapella. COntinue to wean O2 as tolerated. (2) Essential hypertension: Status: Chronic Assessment and plan: Continue amlodipine (3) Generalized anxiety disorder: Status: Chronic Assessment and plan: Continue SSRI + clonazepam. (4) Major depressive disorder, recurrent: Status: Chronic Assessment and plan: Continue sertraline. (5) Hypokalemia: Status: Acute Assessment and plan: Replete. Recheck in am. (6) DVT prophylaxis: Status: Acute Assessment and plan: SC enoxaparin (7) Discharge planning issues: Status: Acute Assessment and plan: Full code Continues to require hospitalization. Subjective Subjective Interval history since last seen: Ms Monae states she is feeling better today. She denies dizziness, chest pain, states shortness of breath is better. cough is now productive of yellow sputum. Denies nausea. Slept well, but did require 2 L Of O2 by NC. Exam Narrative Exam Narrative: General: Pleasant female who is on RA, sitting up in bed, coughing less frequently, A&Ox3, speaking in full sentences, looks better HEENT: EOMI, MMM Heart: RRR, no m/r/g Lungs: rales at B bases; expiratory wheezing bilaterally Abdomen: nondistended Extremities: trace edema BLEs with wrinkles Objective Last Vital Signs Temp 37.3 C 11/15/22 11:28 Pulse 94 H 11/15/22 11:28 Resp 18 11/15/22 11:28 BP 110/74 11/15/22 11:28 Pulse Ox 94 11/15/22 07:53 Laboratory Results - last 24 hr 11/15/22 11/15/22 06:50 06:50 WBC 11.50 H RBC 4.12 Hgb 10.8 L Hct 33.8 L MCV 82 MCH 26.2 L MCHC 32.0 RDW 14.7 H Plt Count 454 H MPV 9.4 Immature Gran % 5.6 Neutrophils % 62.5 Lymphocytes % 21.3 Monocytes % 10.0 Eosinophils % 0.3 Basophils % 0.3 Nucleated RBC % 0.0 Absolute Neutrophils 7.19 H Absolute Lymphocytes 2.45 Absolute Monocytes 1.15 H Absolute Eosinophils 0.03 Absolute Basophils 0.03 RBC Morphology Normal Sodium 142 Potassium 3.2 L Chloride 105 Carbon Dioxide 29.4 Anion Gap 7.6 BUN 23 H Creatinine 0.8 Est GFR (CKD-EPI 2020) 77.75 Glucose 94 Calcium 8.9 Magnesium 1.9 Objective Narrative Objective Narrative: Echo done, read pending Time Spent with Patient Time Spent with Patient: 25-34 minutes Time was spent: preparing to see the patient(eg.review tests), obtaining and/or reviewing separately otained hiistory, ordering medications,tests, procedures, indepentently interpreting results, counseling the patient and care coordination
[2022-11-15] MEDS: Omeprazole 20 MG CAPCR PO (12:27)
--- NOTE | 2022-11-15 15:05 | CMPROGNOTE_ITS ---
- If Service Date Differs Date of service: 11/15/22 Time of Service: 15:05 Care Management Progress Note S/O: Courtney continues to require close monitoring and further medical work. She is sitting in her chair and is awake, alert and able to engage in conversation. Michelle is currently 99% on RA and on a continuous O2 monitor. Courtney has been requiring supplemental O2 prn and would like to know more about those parameters. CM notified nursing. CM will continue to support patient and her discharge planning considerations. A: 72 year old female admitted to [facility] on 11/12/22 for Influenza A, Hypokalemia P: Anticipate, Courtney will discharge home via private vehicle with family, with no new [facility] services when medically ready. She will follow up with her PCP and discharge plan of care. CM will continue to support patient and her discharge planning considerations.
[2022-11-15] MEDS: DOXYCYCLINE 100 MG in Normal Saline 100 ML IVPB (15:32)
[2022-11-15] MEDS: Mometasone 220 MCG 14 DOSE INHALER 1 PUFF IH (16:35)
[2022-11-15] MEDS: Albuterol/Ipratropium 3 ML UPD VIAL UPD ×2 (17:05→21:53)
[2022-11-15] MEDS: Enoxaparin 40 MG/0.4 ML SYR SC (18:22)
[2022-11-15] MEDS: Melatonin 3 MG TAB 9 MG PO (21:55)
[2022-11-15] MEDS: clonazePAM 0.5 MG TAB PO (21:55)
[2022-11-15] MEDS: Potassium Chloride 20 MEQ TABCR PO (21:56)
[2022-11-16] VITALS (7 sets, daily range): BP systolic 102–136; BP diastolic 59–79; PULSE 80–105; RESP 4–18; TEMP 36.4–37; O2SAT 92–96
[2022-11-16] MEDS: DOXYCYCLINE 100 MG in Normal Saline 100 ML IVPB (02:13)
[2022-11-16] MEDS: Albuterol/Ipratropium 3 ML UPD VIAL UPD ×2 (04:41→13:11)
[2022-11-16 09:15] LABS: Procalcitonin < 0.1 ng/mL
[2022-11-16 09:46] LABS: Anion Gap 10.4 mmol/L (3-11); BUN 26 mg/dL (7-18); CO2 26.6 mmol/L (21.0-32.0); CREATININE 0.8 mg/dL (0.55-1.02); Calcium 9.6 mg/dL (8.5-10.1); Chloride 102 mmol/L (98-107); Estimated GFR 77.75 (mL/min/1.73m2); Glucose 105 mg/dL (74-106); Potassium 3.9 mmol/L (3.5-5.1); Sodium 139 mmol/L (136-145)
[2022-11-16] MEDS: amLODIPine 5 MG TAB PO (10:18)
[2022-11-16] MEDS: Benzonatate 200 MG CAP PO (10:18)
[2022-11-16] MEDS: Oseltamivir 30 MG CAP PO (10:19)
[2022-11-16] MEDS: Oxybutynin 5 MG TAB PO (10:19)
[2022-11-16] MEDS: guaiFENesin 600 MG TABCR PO (10:19)
[2022-11-16] MEDS: Potassium Chloride 20 MEQ TABCR 40 MEQ PO (10:19)
[2022-11-16] MEDS: Sertraline 50 MG TAB PO (10:20)
[2022-11-16] MEDS: predniSONE 20 MG TAB 40 MG PO (10:20)
[2022-11-16] MEDS: Sertraline 100 MG TAB PO (10:20)
[2022-11-16] MEDS: Normal Saline Flush 10 ML SYR IVP ×2 (10:20→12:50)
[2022-11-16 10:22] LABS: HCT 36.8 % (36.0-46.0); HGB 11.6 g/dL (11.2-15.7); MCH 26.4 pg (27.0-33.0); MCHC 31.5 % (32.0-36.0); MCV 84 fL (80-95); MPV 9.3 fL (8.0-11.0); Platelet Count 518 10^3/uL (130-400); RDW 14.6 % (11.7-14.6); RDW-SD 44.7 fL; WBC 15.73 10^3/uL (4.4-10.8)
[2022-11-16 10:23] LABS: Abs Immature Grans 0.88 10^3/uL (0.0-0.06); Absolute Basophil Count 0.09 10^3/uL (0.0-0.2); Absolute Eosinophil Count 0.07 10^3/uL (0.0-0.7); Absolute Lymphocyte Count 2.79 10^3/uL (1.2-3.4); Absolute Monocyte Count 1.06 10^3/uL (0.1-0.8); Absolute Neutrophil Count 10.84 10^3/uL (1.2-6.7); Basophils % 0.6; Diff Comment Diff Reviewed; Eosinophils % 0.4; Immature Grans % 5.6; Lymphocytes % 17.7; Monocytes % 6.7
--- NOTE | 2022-11-16 11:05 | PDOC.CMPRO ---
- If Service Date Differs Date of service: 11/16/22 Time of Service: 11:05 Care Management Progress Note S/O: Courtney is sitting up in bed, she is awake, alert and able to engage in conversation and visiting with her Landon. Michelle remains on continuous O2 monitoring. Per Michelle, she wants to discharge today and explains that she has a lot going on at home and is visibly anxious. This info is shared with provider. CM will continue to support patient and her discharge planning considerations. A: 72 year old female admitted to [facility] on 11/12/22 for Influenza A, Hypokalemia P: Anticipate, Courtney will discharge home via private vehicle with family, with no new [facility] services when medically ready. She will follow up with her PCP and discharge plan of care. CM will continue to support patient and her discharge planning considerations.
--- NOTE | 2022-11-16 13:37 | RESPIRATORY ---
RT walked with patient while pt was on room air. Pt's SpO2 maintained at 93% or better for entire walk. Pt states she feels she is ready to go home.
--- NOTE | 2022-11-16 14:10 | W.PM.DS.N ---
Date of service: 11/16/22 Time of Service: 14:10 DS: Diagnosis Discharge Diagnosis (1) Influenza A: Status: Acute (2) Acute bronchitis: Status: Acute (3) (HFpEF) heart failure with preserved ejection fraction: Status: Acute (4) Hypoxia: Status: Resolved (5) Essential hypertension: Status: Chronic (6) Generalized anxiety disorder: Status: Chronic (7) Major depressive disorder, recurrent: Status: Chronic (8) Hypokalemia: Status: Resolved Discharge Plan Disposition Patient Disposition: Home Condition: Improving Discharge Details Reason For Visit: Influenza A,Pneumonia,Hypoxema Admit Date/Time: 11/12/22 18:14 Admit Provider: Sheldon Man Attending Provider: Sheldon Man Primary Care Provider: PranavTina Hospital Course Hospital Course: Ms Rubio is a 72 year old female with PMHx of reactive airways disease, hypertension, hyperlipidemia, generalized anxiety disorder who was admitted to [facility] hospitalist service on 11/12/2022 with acute bronchitis due to influenza A with hypoxia, having just completed a course of tamiflu as outpatient. She was treated with extended course of tamiflu, scheduled + prn bronchodilators, systemic steroids, antitussives and, when her sputum changed colors, antibiotics. There was also a report of orthopnea and the patient was, in fact, edematous and had crackles. Her LVEF was preserved, but clinically she appeared to be in mild congestive heart failure. She was diuresed with a significant improvement of symptoms and resolution of hypoxia. She is being discharged home today to complete a 5 day course of antibiotics (doxycycline/cefpodoxime), a short steroid taper, antitussives. She received ibuprofen for her pleuritic chest pain. During her hospitalization, we repleted her potassium which normalized by the time of discharge. She is medically stable for discharge home today. She should follow up with her PCP in 1- 2 weeks. Care for patient as well as completion of her discharge summary on day of discharge took 45 minutes. Home Meds and New Rx's Prescriptions: New ipratropium-albuterol 0.5 mg-3 mg(2.5 mg base)/3 mL Solution For Nebulization 3 ml UPD Q6H PRN PRN (Reason: shortness of breath or wheezing) Qty: 90 0RF benzonatate 200 mg Capsule 200 mg PO TID PRN PRN (Reason: cough) Qty: 30 0RF Sore Throat (benzocaine-menth) 15-3.6 mg Lozenge 1 ea SUC Q6H PRN PRNQty: 30 0RF guaifenesin [Mucus Relief ER] 600 mg Tablet Extended Release 12hr 600 mg PO BID PRN PRN (Reason: cough) Qty: 20 0RF codeine-guaifenesin 10-100 mg/5 mL Liquid 5 ml PO Q6H PRN PRNQty: 120 0RF prednisone 20 mg Tablet See Rx Instructions .ROUTE .COMPLEX Qty: 7 0RF Rx Instructions: 40 mg PO daily x 2 days, then 20 mg PO daily x 2 days, then 10 mg PO daily x 2 days, then stop. ibuprofen 600 mg Tablet 600 mg PO QID PRN PRNQty: 30 0RF doxycycline hyclate 100 mg tablet 100 mg PO BID Qty: 8 0RF cefpodoxime 200 mg tablet 200 mg PO BID Qty: 8 0RF Rx Instructions: must administer with a meal/food naloxone [Narcan] 4 mg/actuation spray,non-aerosol 1 spray intranasal Q2-3M PRN (Reason: opioid overdose) Qty: 2 0RF Rx Instructions: spray 1 dose into ONE nostril; alternate nostrils w each dose until help arrives Continued cholecalciferol (vitamin D3) 25 mcg (1,000 unit) capsule 25 mcg PO DAILY biotin 5,000 mcg tablet,disintegrating 10,000 mcg PO DAILY Fish Oil 340-1,000 mg capsule 1 cap PO DAILY melatonin 10 mg tablet 10 mg PO HS PRN albuterol sulfate 1.25 mg/3 mL solution for nebulization 1.25 mg inhalation TID PRN (Reason: shortness of breath or wheezing) Qty: 90 0RF fluticasone propionate [Flovent HFA] 110 mcg/actuation HFA aerosol inhaler 110 mcg Inhalation BID PRN (Reason: bronchospasm) Qty: 1 6RF albuterol sulfate 90 mcg/actuation HFA aerosol inhaler 2 puff IH QID PRN (Reason: shortness of breath or wheezing) Qty: 18 6RF amoxicillin 500 mg tablet 2,000 mg PO ONCE Qty: 16 2RF Rx Instructions: take 1 hour before procedure clonazepam 0.5 mg tablet 0.25 - 0.5 mg PO QHS PRN (Reason: insomnia) Qty: 30 2RF oxybutynin chloride 5 mg tablet 5 mg PO DAILY Qty: 90 3RF cetirizine [Zyrtec] 10 mg tablet 10 mg PO DAILY PRN (Reason: allergy symptoms) Qty: 90 3RF amlodipine 5 mg tablet 5 mg PO DAILY Qty: 90 3RF omeprazole 20 mg capsule,delayed release(DR/EC) 20 mg PO DAILY PRN (Reason: gerd) Qty: 90 1RF sennosides [Senokot] 1 TAB tablet 4 tab PO HS sertraline 100 mg tablet 150 mg PO DAILY Label Comments: TAKE ONE TABLET BY MOUTH EVERY DAY WITH 25MG Discontinued oseltamivir 75 mg capsule 75 mg PO BID 5 Days Qty: 10 0RF Discharge Instructions Instructions: Doxycycline (By mouth), Prednisone (By mouth), Cefpodoxime Proxetil (By mouth), Heart Failure (DC), Influenza (DC), Acute Bronchitis (ED), Low-Sodium Diet (DC) Additional Instructions: Finish your antibiotics and steroids as prescribed. Return to the hospital with any fever, bleeding, chest pain, or shortness of breath. Follow up with your PCP in 1-2 weeks. Follow a low sodium diet. Stand Alone Forms: Nursing Discharge Form Referrals: Tina Rock NP [Primary Care Provider] - 11/24/22 11:40 am Activity:: Activity as Tolerated Equipment/Supplies:: No Equipment Needed Diet:: Low Sodium Discharge Orders Discharge Orders: Discharge Order (Routine); Ordered 11/16/22 Ordered By: Jennifer Noriega Discharge Data Discharge Date/Time-TO BE ENTERED AT DEPARTURE: 11/16/22 16:00 DS: Summary Time Spent with Patient providing and/or coordinating discharge services: Greater than 30 minutes Status at Discharge Functional status at discharge: independent ambulation Overall status at discharge: patient is progressing back to baseline Mental Status: mental status grossly normal Speech and Movement: speech and movement normal Mood: congruent mood Affect: normal affect Exam Narrative Exam Narrative: General: Pleasant female who is on RA, sitting up in bed, not coughing, looks better, A&Ox3 HEENT: EOMI, MMM Heart: RRR, no m/r/g Lungs: coarse bilateraly breath sounds, but no wheezing or rales. Abdomen: nondistended Extremities: trace edema BLEs with wrinkles Psych Mental Status: mental status grossly normal Speech and Movement: speech and movement normal Mood: congruent mood Affect: normal affect DS: Data Vitals/I&O Vitals and I&O: Vital Signs Temperature 36.9 C 11/16/22 13:12 Temperature Source Tympanic 11/16/22 13:12 Pulse 80 11/16/22 07:38 Pulse Rhythm Regular 11/16/22 09:00 Pulse 107 H 11/12/22 18:20 Respiratory Rate 16 11/16/22 07:38 Respiratory Effort 11/16/22 09:00 Respiratory Depth Normal 11/16/22 09:00 Respiratory Pattern Normal 11/16/22 09:00 Blood Pressure 136/79 11/16/22 07:38 Blood Pressure Mean 80 11/12/22 18:15 Blood Pressure Position Sitting 11/12/22 16:34 Pulse Oximetry 96 11/16/22 13:12 Oxygen Delivery Method Room Air 11/16/22 13:11 Oxygen Flow Rate 0 11/16/22 13:11 Pain Level 0 11/16/22 07:38 Intake & Output 11/15/22 11/16/22 11/16/22 23:59 11:59 23:59 Intake Total 400 / 630 350 / 350 Output Total 2150 / 3300 900 / 1300 400 / 1300 Balance -1750 / -2670 -550 / -950 -400 / -950 Weight 66.3 kg Intake: IV 160 / 170 110 / 110 Oral 240 / 460 240 / 240 Output: Urine 2150 / 3300 900 / 1300 400 / 1300 Other: Urine Color Straw Straw Pale Yellow Urine Appearance Clear Clear Clear Urine Odor Normal None Voiding Methods Toilet Toilet Data Completed and Pending Completed studies during hospitalization [Text1]: CXR: Patchy bilateral infiltrates. Echo: normal LV size and systolic function. LV EF is 59% by Neri's biplane without segmental wall motion abnormalities. RV size and global systolic function are normal. RVSP not reported. There is mild aortic stenosis and mild regurgitation. Labs on day of discharge: Labs from last 24 hours 11/16/22 11/16/22 11/16/22 06:00 06:00 06:00 WBC 15.73 H RBC 4.40 Hgb 11.6 Hct 36.8 MCV 84 MCH 26.4 L MCHC 31.5 L RDW 14.6 Plt Count 518 H MPV 9.3 Immature Gran % 5.6 Neutrophils % 69.0 Lymphocytes % 17.7 Monocytes % 6.7 Eosinophils % 0.4 Basophils % 0.6 Absolute Neutrophils 10.84 H Absolute Lymphocytes 2.79 Absolute Monocytes 1.06 H Absolute Eosinophils 0.07 Absolute Basophils 0.09 Sodium 139 Potassium 3.9 Chloride 102 Carbon Dioxide 26.6 Anion Gap 10.4 BUN 26 H Creatinine 0.8 Est GFR (CKD-EPI 2020) 77.75 Glucose 105 Calcium 9.6 Magnesium 2.0 Procalcitonin < 0.1 Preliminary micro results at discharge 11/15/22 18:15 Sputum Culture - Preliminary Sputum Normal Elena 11/12/22 18:35 Blood Culture - Preliminary Blood NO GROWTH 72 HOURS 11/12/22 18:25 Blood Culture - Preliminary Blood NO GROWTH 72 HOURS PFSH All Active Problems (Updated 11/16/22 @ 14:12 by Jennifer Noriega MD) (HFpEF) heart failure with preserved ejection fraction (Acute) Acute bronchitis (Acute) Discharge planning issues (Acute) DVT prophylaxis (Acute) Pneumonia (Acute) Influenza A (Acute) Essential hypertension (Chronic) Hyperlipidemia (Chronic) Generalized anxiety disorder (Chronic) Major depressive disorder, recurrent (Chronic) GERD (gastroesophageal reflux disease) (Chronic) OCD (obsessive compulsive disorder) (Chronic) Osteopenia (Chronic) Dexa 2004. Does not desire further eval Reactive airway disease (Chronic) Benign paroxysmal positional vertigo (Chronic) Chronic rhinitis (Chronic) Urge incontinence (Chronic) Anosmia (Chronic) Since Moderna vaccine in 2020 Medical History COVID-19 virus infection (~12/2021) Hyperparathyroidism Vitamin B 12 deficiency Surgical History S/P parathyroidectomy (03/10/05) S/P NICOLAS-BSO (total abdominal hysterectomy and bilateral salpingo-oophorectomy) (~1989) Status post total left knee replacement (~04/2015) Family History Mother , CHF at age 85. Diabetes Essential hypertension Personal history of malignant neoplasm Heart disease Hyperlipidemia Hyperparathyroidism Kidney calculi Father , LUNG CANCER at age 66. Alcohol abuse Essential hypertension Personal history of malignant neoplasm Heart disease Stroke Asthma Sister Depression Brother , MOTORCYCLE ACCIDENT at age 57. Alcohol abuse Essential hypertension Myocardial infarction Asthma Grandfather Alcohol abuse Essential hypertension Grandmother Diabetes Son Essential hypertension Daughter Diabetes Depression Hyperparathyroidism Kidney calculi PATERNAL GRANDMOTHER , DIABETES at age 70. Diabetes PATERNAL GRANDFATHER , ORGANIC BRAIN SYNDRO at age 60. Alcohol abuse Brother Substance abuse Cerebral palsy with spastic/ataxic diplegia FROM Brother , [place] at age 24. No problems noted. Social History Smoking/Tobacco Use Status: Never Second Hand Exposure: Yes Smoking risk assessment performed?: Yes Alcohol Intake: current Alcohol Intake frequency: a few times a month Drug use: Never Substance use type: does not use Household members: spouse Communication Needs: None Do you need help understanding health information?: Never Pets and animals: Yes Current gender identity: female What is your relationship status?: How often do you talk on the phone with friends or family?: three or more times per week Do you belong to any clubs or organized social groups?: no Panel score (0-1 are the most socially isolated patients): 2 What type of physical activity do you participate in: walking Frequency: 1-2 times per week Seatbelt use: always Helmet use: Yes Helmet use: always Drive intox or ride w/intox driver courier: No Do you feel safe at home: Yes Do you feel safe in your relationship?: Yes Time Spent with Patient Time Spent with Patient: 45-69 minutes Time was spent: preparing to see the patient(eg.review tests), obtaining and/or reviewing separately otained hiistory, ordering medications,tests, procedures, referring, communicating with other health skin care specialist, indepentently interpreting results, counseling the patient and care coordination
--- NOTE | 2022-11-16 15:00 | CMDISCH_ITS ---
- If Service Date Differs Date of service: 11/16/22 Time of Service: 15:00 LACE Index Scoring Tool - Questions: Length of Stay (in days): 4 - 6 Acuity (Admit via E.D.?): Yes E.D. Visits: 1 - Answers: Total Score: 8 Risk of Readmission: Low Risk Care Management Discharge Reason for Hospitalization: Influenza A, Hypokalemia Discharge Plan: Courtney is discharged home via private vehicle with family. Michelle will follow up with community providers and discharge plan of care as presc ribed. New RX's are transmitted to [facility]. No services are ordered. PCP follow up on 11/16/22, as scheduled. Courtney is encouraged to return to the hospital with any fever, bleeding, chest pain, or shortness of breath. Patient/Family Education Needs: Review discharge instructions, limitations, medications and plan to follow up with community providers. Discuss ask me three and goals of self care.
== END 2022-11-16 16:00 | disposition home or self-care (01) | DRG 193 ==
LOC: ER 19:23 → MS 19:41
PROVIDERS: Internal Medicine; Admitting Provider Family Medicine; Emergency Provider Physician Assistant; PCP Nurse Practitioner Family; Visit Provider Family Medicine
DX: J10.1 Influenza due to other identified influenza virus with other respiratory manifestations (principal); I50.31 Acute diastolic (congestive) heart failure; F33.9 Major depressive disorder, recurrent, unspecified; J20.9 Acute bronchitis, unspecified; R09.02 Hypoxemia; F41.1 Generalized anxiety disorder; E87.6 Hypokalemia; E78.5 Hyperlipidemia, unspecified; F42.9 Obsessive-compulsive disorder, unspecified; J45.909 Unspecified asthma, uncomplicated; J31.0 Chronic rhinitis; H81.10 Benign paroxysmal vertigo, unspecified ear; M85.80 Other specified disorders of bone density and structure, unspecified site; N39.41 Urge incontinence; R43.0 Anosmia; T50.B95A Adverse effect of other viral vaccines, initial encounter; Z86.16 Personal history of COVID-19; E89.2 Postprocedural hypoparathyroidism; E53.8 Deficiency of other specified B group vitamins; I11.0 Hypertensive heart disease with heart failure
CPT/HCPCS: 36415; 80048; 80053; 84145; 87040; 87637; 93005; 94618; 96365; 96368; 96375; 99285; J1650; 71045; 83605; 83735; 83880; 84100; 85025; 87070; 87205; 93010; 93306; 94640; 94667; 99222; 99232; 99239; J0456; J0696; J1941; J2930; J3480; J7512; J7613; J7620

== ENCOUNTER 2023-02-23 00:54 | Outpatient (CLI) | payer MEDICARE, SELFPAY ==
--- NOTE | 2023-02-23 07:45 | DI.RAD_ITS ---
Exam(s) XR HAND RT COMPLETE EXAM: XR HAND RT COMPLETE CLINICAL HISTORY: bilateral thumb pain, wakes at night,ARTHRALGIA,LT HAND PAIN, M79.642,M25.5. TECHNIQUE: 2D digital imaging was performed. COMPARISON: No exams were available for comparison FINDINGS: 3 views No evidence of fracture or dislocation. There is degenerative narrowing of the med at carpophalangea l joint of the 2nd-index finger. No erosions at this level. There is a thin foreign body in the sof t tissues near the distal phalanx of the 3rd-middle finger. There is advanced osteoarthritic degener ative change at the 1st carpometacarpal joint, this being the articulation between the thumb metacarp al and trapezium. Mild degenerative change noted in the metacarpophalangeal joint of the thumb and i n the interphalangeal joint. IMPRESSION: Advanced degenerative changes at the 1st carpometacarpal joint of the right hand. Degenerative change also noted at the metacarpophalangeal joint and interphalangeal joint of the thum b. Also at the metacarpophalangeal joint of the 2nd-index finger. Thin wire like radiopaque foreign body noted in the distal 3rd finger. DATA REPOSITORY: RADIATION DOSE DELIVERED:
--- NOTE | 2023-02-23 07:45 | DI.RAD_ITS ---
Exam(s) XR HAND LT COMPLETE EXAM: XR HAND LT COMPLETE CLINICAL HISTORY: bilateral thumb pain - wankes at night,ARTHRALGIA,M25.50. TECHNIQUE: 2D digital imaging was performed. COMPARISON: CR XR HAND RT COMPLETE from 02/23/2023 FINDINGS: 3 views No evidence acute fracture nor dislocation. No radiopaque foreign body in the left hand. Metacarpop halangeal joints appear unremarkable. No erosions. There are moderate-advanced degenerative changes at the 1st carpometacarpal joint, similar to the opp osite side. Metacarpal phalangeal joint of the thumb appears unremarkable as does the interphalangea l joint of the thumb. Also some degenerative change at the articulation between the distal scaphoid and trapezium. IMPRESSION: Significant degenerative changes at the 1st carpometacarpal joint, similar to the opposite side. Other findings as above. No radiopaque foreign body on this side. DATA REPOSITORY: RADIATION DOSE DELIVERED:
== END 2023-02-23 01:14 ==
LOC: DI 00:55
PROVIDERS: PCP Family Medicine; Visit Provider Family Medicine
DX: M25.50 Pain in unspecified joint (principal); M79.642 Pain in left hand
CPT/HCPCS: 73130

== ENCOUNTER 2023-03-15 14:39 | Outpatient (REF) | payer MEDICARE, SELFPAY ==
[2023-03-15 12:58] LABS: Anion Gap 7.8 mmol/L (3-11); BUN 13 mg/dL (7-18); CO2 30.2 mmol/L (21.0-32.0); CREATININE 0.7 mg/dL (0.55-1.02); Calcium 9.2 mg/dL (8.5-10.1); Calculated LDL 123 mg/dL (<100); Chloride 103 mmol/L (98-107); Cholesterol 201 mg/dL (<200); Estimated GFR 91.26 (mL/min/1.73m2); Glucose 83 mg/dL (74-106); HDL Cholesterol 65 mg/dL (40-60); Hemoglobin A1C 5.9 % (<5.7); Potassium 4.5 mmol/L (3.5-5.1); Sodium 141 mmol/L (136-145); Triglyceride 66 mg/dL (<150)
== END 2023-03-15 14:40 | disposition home or self-care (01) ==
LOC: LBN 14:39
PROVIDERS: PCP Family Medicine; Visit Provider Family Medicine
DX: E78.5 Hyperlipidemia, unspecified (principal); E87.6 Hypokalemia; R73.09 Other abnormal glucose
CPT/HCPCS: 80048; 80061; 83036

== ENCOUNTER 2024-03-29 17:18 | Emergency (ER) | payer OTHER, MEDICARE, SELFPAY ==
[2024-03-29 17:23] VITALS: BP 150/68; PULSE 82; RESP 18; TEMP 36.4; O2SAT 98
[2024-03-29 17:26] VITALS: BP 150/68; PULSE 78
[2024-03-29 17:31] VITALS: BP 136/73; PULSE 77
--- NOTE | 2024-03-29 17:45 | DI.CT_ITS ---
Exam(s) CT LUMBAR SPINE RECONS CT CHEST/ABD/PEL W EXAM: CT CHEST/ABD/PEL W CLINICAL HISTORY: fall stairs, right rib flank and back pain. TECHNIQUE: Imaging Protocol: Axial computed tomography images with coronal and sagittal reformatted images were created and reviewed. Axial, coronal and sagittal images of the lumbar spine were reconstructed from the abdomen pelvic CT. CONTRAST MATERIAL: Intravenous: Omnipaque 350 Contrast volume:100 ml Oral: / no COMPARISON: CR CHEST 2 VIEWS PA,LAT from 05/02/2017 CR,XR XR PORTABLE CHEST AP from 11/12/[address] LUMBAR SPINE RECONS from 03/29/2024 FINDINGS: CHEST: Moderate-sized hiatal hernia. Tracheobronchial tree: Patent. Pulmonary parenchyma: No consolidation or dominant measurable mass. Pleura: No effusion or pneumothorax. Lymph nodes: Within normal limits. Aorta: Thoracic portion non-dilated. Heart: Heart is mildly dilated. No pericardial effusion. Mild coronary artery calcifications. Bones: Increased kyphosis. Advanced degenerative disc changes in the mid thoracic region.. No lytic or blastic lesions.No compression fractures. Fractures of the right lateral 10th and 11th ribs. No left rib fractures. Soft tissues: Unremarkable. ABDOMEN and PELVIS: Exam somewhat limited by motion the upper abdomen. Liver: Intact. Normal density. No measurable mass. Gallbladder and biliary tract: No evidence of stones or wall thickening. No biliary dilatation. Pancreas: Normal density, no abnormal calcifications or inflammatory process. Spleen: Normal. Kidneys: Normal size, contour and axis. No radiodense stones. No obstructive uropathy. No suspicious masses seen. Adrenal glands: No masses seen. Aorta: Abdominal portion non-dilated. Lymph nodes: Within normal limits. Soft tissues: Unremarkable. Bladder: Unremarkable. Bowel: No obstruction or bowel wall thickening. Peritoneal cavity: No ascites. No focal collection. No mesenteric inflammatory response. Bones: No acute spine or pelvic fracture. Significant sclerosis on both sides of the SI joints with mild irregularity. No bony bridging. Findings appear chronic. Multilevel degenerative disc changes and facet degenerative changes noted in the spine. Findings worst at L4-5 where there is mild degen erative spondylolisthesis as well as neural foraminal narrowing and mild central canal stenosis. Baa strup's of the spinous processes.. Reproductive organs: Status post hysterectomy. IMPRESSION: Right 10th and 11th rib fractures. No evidence of pneumothorax or pulmonary contusion. No acute abnormality in the abdomen or pelvis. Bilateral sacroiliac joint sclerosis. The findings c ould be degenerative or related to inflammatory arthritis. No acute abnormality in the lumbar spine. RADIATION DOSE DELIVERED: Total DLP DATA REPOSITORY: All CT scans at this facility are submitted to the National Radiology Data Registry (NRDR) Dose Index Registry (DIR) with the [employer] (ACR). RADIATION OPTIMIZATION: All CT scans at this facility use at least one of these dose optimization te chniques: automated exposure control; mA and/or kV adjustment per patient size (includes targeted exa ms where dose is matched to clinical indication); or iterative reconstruction.
[2024-03-29 17:46] VITALS: BP 146/72; PULSE 76
--- NOTE | 2024-03-29 17:47 | ED.GENADUL_ITS ---
Discharge Plan Disposition Patient Disposition: Home Condition: Stable Discharge Details Clinical Impression: Multiple rib fractures Primary Care Provider: Veronica Espinoza ED Provider: Sheldon Norman Home Meds and New Rx's Prescriptions: New lidocaine [Lidoderm] 5 % adhesive patch,medicated 1 patch topical DAILY PRNQty: 15 0RF Rx Instructions: leave on most painful area for up to 12 hrs No Action cholecalciferol (vitamin D3) 25 mcg (1,000 unit) capsule 25 mcg PO DAILY biotin 5,000 mcg tablet,disintegrating 10,000 mcg PO DAILY Fish Oil 340-1,000 mg capsule 1 cap PO DAILY melatonin 10 mg tablet 10 mg PO HS PRN albuterol sulfate 1.25 mg/3 mL solution for nebulization 1.25 mg inhalation TID PRN (Reason: shortness of breath or wheezing) Qty: 90 0RF mirabegron [Myrbetriq] 25 mg tablet extended release 24 hr 25 mg PO DAILY Qty: 90 4RF amoxicillin 500 mg tablet 2,000 mg PO ONCE Qty: 16 2RF Rx Instructions: take 1 hour before procedure cetirizine [Zyrtec] 10 mg tablet 10 mg PO DAILY PRN (Reason: allergy symptoms) Qty: 90 3RF spironolactone 25 mg tablet 25 mg PO DAILY Qty: 90 4RF oxybutynin chloride 5 mg tablet 5 mg PO BID Qty: 90 3RF clonazepam 0.5 mg tablet 0.25 - 0.5 mg PO QHS PRN (Reason: insomnia) Qty: 90 2RF omeprazole 20 mg capsule,delayed release(DR/EC) 20 mg PO DAILY PRN (Reason: gerd) Qty: 90 6RF ondansetron 8 mg tablet,disintegrating 8 mg PO Q8H PRN (Reason: nausea and vomiting) Qty: 30 0RF Rx Instructions: hold escitalopram on the days you take ondansatran albuterol sulfate 90 mcg/actuation HFA aerosol inhaler 2 puff IH QID PRN (Reason: shortness of breath or wheezing) Qty: 18 6RF escitalopram oxalate 20 mg tablet 30 mg PO DAILY Qty: 135 4RF fluticasone propionate 110 mcg/actuation HFA aerosol inhaler 110 mcg Inhalation BID PRN (Reason: bronchospasm) Qty: 3 6RF triamcinolone acetonide 0.1 % cream 1 applic topical BID Qty: 80 0RF Rx Instructions: apply to foot tirzepatide 2.5 mg/0.5 mL pen injector 2.5 mg subcut QWEEK Qty: 2 6RF sennosides [Senokot] 1 TAB tablet 4 tab PO HS ipratropium-albuterol 0.5 mg-3 mg(2.5 mg base)/3 mL Solution For Nebulization 3 ml UPD Q6H PRN PRN (Reason: shortness of breath or wheezing) Qty: 90 0RF naproxen sodium [Aleve] 220 mg capsule 220 mg PO BID PRN Discharge Instructions Instructions: Rib Fracture (ED) Additional Instructions: Please use incentive spirometer at home. Continue with ibuprofen and/or acetaminophen as needed for pain. Return to the emergency department for any worsening symptoms. HPI General Date/Time Provider Initiated Documentation: 03/29/24 17:26 . HPI Narrative: 73-year-old female presents after mechanical fall down approximately 3 stairs s lipped, fell onto her right side pain to right flank right back, no nausea vomiting abdominal pain chest pain trouble breathing or other systemic signs of illness. Related Data Home Medications Medication Instructions Recorded Confirmed sennosides 8.6 mg tablet (Senokot) 4 tab PO HS 04/15/15 02/28/24 biotin 5,000 mcg disintegrating 10,000 mcg PO DAILY 01/16/22 03/29/24 tablet cholecalciferol (vitamin D3) 25 25 mcg PO DAILY 01/16/22 03/29/24 mcg (1,000 unit) capsule melatonin 10 mg tablet 10 mg PO HS PRN 01/16/22 03/29/24 omega-3 fatty acids-fish oil 340 1 cap PO DAILY 01/16/22 03/29/24 mg-1,000 mg capsule (Fish Oil) amoxicillin 500 mg tablet 2,000 mg (4 x 500 mg) PO ONCE #16 05/16/22 03/29/24 tabs cetirizine 10 mg tablet (Zyrtec) 10 mg PO DAILY PRN allergy 09/06/22 03/29/24 symptoms #90 tabs albuterol sulfate 1.25 mg/3 mL 1.25 mg (3 mL) inhalation TID PRN 01/04/23 05/25/24 solution for nebulization shortness of breath or wheezing #90 mL ipratropium 0.5 mg-albuterol 3 mg 3 ml UPD Q6H PRN PRN shortness of 11/16/22 02/28/24 (2.5 mg base)/3 mL nebulization breath or wheezing #90 mL soln oxybutynin chloride 5 mg tablet 5 mg PO BID #90 tab-caps 11/09/23 02/28/24 spironolactone 25 mg tablet 25 mg PO DAILY #90 tabs 11/09/23 03/29/24 clonazepam 0.5 mg tablet 0.25 - 0.5 mg (0.5 - 1 x 0.5 mg) 11/19/23 03/29/24 PO QHS PRN insomnia #90 tabs omeprazole 20 mg capsule,delayed 20 mg PO DAILY PRN gerd #90 12/14/23 02/28/24 release tab-caps ondansetron 8 mg disintegrating 8 mg PO Q8H PRN nausea and 12/14/23 02/28/24 tablet vomiting #30 tabs albuterol sulfate 90 mcg/actuation 2 puff inhalation QID PRN 12/31/23 03/29/24 aerosol inhaler shortness of breath or wheezing #18 grams escitalopram oxalate 20 mg tablet 30 mg (1.5 x 20 mg) PO DAILY #135 01/25/24 03/29/24 tabs fluticasone propionate 110 110 mcg inhalation BID PRN 01/25/24 03/29/24 mcg/actuation HFA aerosol inhaler bronchospasm #3 ea triamcinolone acetonide 0.1 % 1 applic topical BID #80 grams 01/25/24 02/28/24 topical cream mirabegron 25 mg tablet,extended 25 mg PO DAILY #90 tabs 02/28/24 03/29/24 release 24 hr (Myrbetriq) tirzepatide 2.5 mg/0.5 mL 2.5 mg (0.5 mL) subcut QWEEK #2 mL 03/11/24 subcutaneous pen injector lidocaine 5 % topical patch 1 patch topical DAILY PRN #15 ea 03/29/24 (Lidoderm) naproxen sodium 220 mg capsule 220 mg PO BID PRN 03/29/24 03/29/24 (Aleve) Previous Rx's Medication Instructions Recorded amoxicillin 500 mg tablet 2,000 mg (4 x 500 mg) PO ONCE #16 05/16/22 tabs cetirizine 10 mg tablet (Zyrtec) 10 mg PO DAILY PRN allergy 09/06/22 symptoms #90 tabs albuterol sulfate 1.25 mg/3 mL 1.25 mg (3 mL) inhalation TID PRN 11/08/22 solution for nebulization shortness of breath or wheezing #90 mL ipratropium 0.5 mg-albuterol 3 mg 3 ml UPD Q6H PRN PRN shortness of 11/16/22 (2.5 mg base)/3 mL nebulization breath or wheezing #90 mL soln oxybutynin chloride 5 mg tablet 5 mg PO BID #90 tab-caps 11/09/23 spironolactone 25 mg tablet 25 mg PO DAILY #90 tabs 11/09/23 clonazepam 0.5 mg tablet 0.25 - 0.5 mg (0.5 - 1 x 0.5 mg) 11/19/23 PO QHS PRN insomnia #90 tabs omeprazole 20 mg capsule,delayed 20 mg PO DAILY PRN gerd #90 12/14/23 release tab-caps ondansetron 8 mg disintegrating 8 mg PO Q8H PRN nausea and 12/14/23 tablet vomiting #30 tabs albuterol sulfate 90 mcg/actuation 2 puff inhalation QID PRN 12/31/23 aerosol inhaler shortness of breath or wheezing #18 grams escitalopram oxalate 20 mg tablet 30 mg (1.5 x 20 mg) PO DAILY #135 01/25/24 tabs fluticasone propionate 110 110 mcg inhalation BID PRN 01/25/24 mcg/actuation HFA aerosol inhaler bronchospasm #3 ea triamcinolone acetonide 0.1 % 1 applic topical BID #80 grams 01/25/24 topical cream mirabegron 25 mg tablet,extended 25 mg PO DAILY #90 tabs 02/28/24 release 24 hr (Myrbetriq) tirzepatide 2.5 mg/0.5 mL 2.5 mg (0.5 mL) subcut QWEEK #2 mL 03/11/24 subcutaneous pen injector lidocaine 5 % topical patch 1 patch topical DAILY PRN #15 ea 03/29/24 (Lidoderm) Allergies Allergy/AdvReac Type Severity Reaction Status Date / Time hydrochlorothiazide Allergy Severe RASH Verified 03/29/24 17:36 latex Allergy Severe Skin Rash Verified 03/29/24 17:36 morphine AdvReac Intermediate Verified 03/29/24 17:36 respiratory depression on low dose venlafaxine AdvReac Intermediate INCREASED Verified 03/29/24 17:36 BP atenolol AdvReac Mild PALPITATION Verified 03/29/24 17:36 S bupropion AdvReac Mild Does not Verified 03/29/24 17:36 tolerate well lisinopril AdvReac Mild COUGH Verified 03/29/24 17:36 General Stated Complaint: Fall/Non TraumaCriteria DARIAN: 3 Review of Systems Narrative: Review of Systems Constitutional: negative Eyes: negative ENT: negative Cardiovascular: negative Respiratory: negative Gastrointestinal: negative : negative Musculoskeletal: Back pain Skin: negative Neurologic: negative Psych: negative Exam Narrative Exam Narrative: Physical Examination General: alert, awake, cooperative, resting comfortably, no acute distress HEENT: normocephalic, atraumatic; PERRL, EOM intact, conjunctiva normal; no nasal discharge; moist mucous membranes, oral and pharyngeal mucosa normal, tolerating secretions Neck: supple, trachea midline; full ROM Chest: normal to inspection Respiratory: normal respiratory effort, speaking in full sentences, clear to auscultation, no wheezing, rales or rhonchi Cardiac: regular rate, regular rhythm, S1S2 intact, no murmurs rubs or gallops GI: abdomen soft, non-tender, non-distended; no palpable mass or hepatosplenomegaly Back: No midline spinal tenderness step-off crepitus or deformity; discomfort right thoracic/flank region Skin: no lesions, rashes or trauma appreciated Neuro: AAOx3, normal speech, moving all extremities Extremities: Moving all extremities, pelvis stable Psych: Appropriate mood and affect Course Vital Signs Vital signs: Vital Signs Temperature 36.4 C L 03/29/24 17:23 Pulse 82 03/29/24 17:23 Respiratory Rate 18 03/29/24 17:23 Blood Pressure 150/68 H 03/29/24 17:23 Pulse Oximetry 98 03/29/24 17:23 Temperature 36.4 C L 03/29/24 17:23 Temperature Source Oral 03/29/24 17:23 Pulse 82 03/29/24 17:23 Respiratory Rate 18 03/29/24 17:23 Respiratory Effort Normal 03/29/24 17:42 Blood Pressure 150/68 H 03/29/24 17:23 Blood Pressure Position Sitting 03/29/24 17:23 Pulse Oximetry 98 03/29/24 17:23 Oxygen Delivery Method Room Air 03/29/24 17:23 Oxygen Flow Rate 0 03/29/24 17:23 Medical Decision Making 73-year-old female presents after mechanical fall down 3 stairs onto her right side, pain to her right flank, and right back, no midline spinal tenderness, crepitus step-off or deformity, patient neurologically intact moving all extremities ambulatory, pelvis stable, no signs of cranial or abdominal trauma, no ecchymosis. Consider flank contusion versus posterior rib injury low suspicion for pneumothorax muscles consider solid organ injury such as kidney contusion/hematoma low suspicion for pelvic fracture or lumbar spinal fracture. Given mechanism of injury will obtain CT chest abdomen pelvis with reconstitution of the lumbar spine. Will provide analgesia anti-inflammatory. Close reassessment 21: 12 evidence of 10th and 11th right-sided rib fracture. No underlying insult to thoracoabdominal organs. Resting comfortably no acute distress. Nonhypoxic nontachypneic. Patient has incentive spirometer at home. He is comfortable using acetaminophen and ibuprofen as needed will prescribe Lidoderm patches. Home care instructions and return precautions given. Family to take her home Quality:SDOH Health Related Social Needs: No Data to Display PFSH All Active Problems (Updated 03/29/24 @ 21:21 by Sheldon Norman MD) Multiple rib fractures (Acute) Prediabetes (Acute) Fatigue (Acute) Incontinence in female (Acute) Arthralgia (Acute) Hypokalemia (Acute) Influenza A (Acute) Essential hypertension (Chronic) Hyperlipidemia (Chronic) Generalized anxiety disorder (Chronic) Major depressive disorder, recurrent (Chronic) GERD (gastroesophageal reflux disease) (Chronic) OCD (obsessive compulsive disorder) (Chronic) Osteopenia (Chronic) Dexa 2004. Does not desire further eval Reactive airway disease (Chronic) Benign paroxysmal positional vertigo (Chronic) Urge incontinence (Chronic) Anosmia (Chronic) Since Moderna vaccine in 2020 Medical History (Updated 03/29/24 @ 21:21 by Sheldon Norman MD) (HFpEF) heart failure with preserved ejection fraction Acute bronchitis Hypoxia Pneumonia Hypokalemia COVID-19 virus infection (~12/2021) Hyperparathyroidism Chronic rhinitis Vitamin B 12 deficiency Surgical History Status post total left knee replacement (~04/2015) S/P NICOLAS-BSO (total abdominal hysterectomy and bilateral salpingo-oophorectomy) (~1989) S/P parathyroidectomy (03/10/05) Family History Mother , CHF at age 85. Diabetes Essential hypertension Personal history of malignant neoplasm Heart disease Hyperlipidemia Hyperparathyroidism Kidney calculi Father , LUNG CANCER at age 66. Alcohol abuse Essential hypertension Personal history of malignant neoplasm Heart disease Stroke Asthma Sister Depression Brother , MOTORCYCLE ACCIDENT at age 57. Alcohol abuse Essential hypertension Myocardial infarction Asthma Grandfather Alcohol abuse Essential hypertension Grandmother Diabetes Son Essential hypertension Daughter Diabetes Depression Hyperparathyroidism Kidney calculi PATERNAL GRANDMOTHER , DIABETES at age 70. Diabetes PATERNAL GRANDFATHER , ORGANIC BRAIN SYNDRO at age 60. Alcohol abuse Brother Substance abuse Cerebral palsy with spastic/ataxic diplegia FROM Brother , [place] at age 24. No problems noted. Social History Smoking/Tobacco Use Status: Never Second Hand Exposure: Yes Smoking risk assessment performed?: Yes Alcohol Intake: current Alcohol Intake frequency: a few times a month Drug use: Never Substance use type: does not use Household members: spouse Housing: house Communication Needs: None Do you need help understanding health information?: Never Pets and animals: Yes Current gender identity: female What is your relationship status?: How often do you talk on the phone with friends or family?: three or more times per week Do you belong to any clubs or organized social groups?: no Panel score (0-1 are the most socially isolated patients): 2 What type of physical activity do you participate in: walking Frequency: 1-2 times per week Seatbelt use: always Helmet use: Yes Helmet use: always Drive intox or ride w/intox charter driver: No Do you feel safe at home: Yes Do you feel safe in your relationship?: Yes
[2024-03-29 17:56] LABS: Abs Immature Grans 0.03 10^3/uL (0.0-0.06); Absolute Basophil Count 0.07 10^3/uL (0.0-0.2); Absolute Eosinophil Count 0.34 10^3/uL (0.0-0.7); Absolute Lymphocyte Count 1.87 10^3/uL (1.2-3.4); Absolute Neutrophil Count 6.03 10^3/uL (1.2-6.7); Basophils % 0.8 %; Eosinophils % 3.8 %; HCT 35.9 % (36.0-46.0); HGB 11.8 g/dL (11.2-15.7); Immature Grans % 0.3 %; Lymphocytes % 20.7 %; MCH 28.9 pg (27.0-33.0); MCHC 32.9 % (32.0-36.0); MCV 88 fL (80-95); MPV 8.9 fL (8.0-11.0); Monocytes % 7.7 %; Neutrophils % 66.7 %; Platelet Count 278 10^3/uL (130-400); RBC 4.08 10^6/uL (3.93-5.22); RDW 13.7 % (11.7-14.6); RDW-SD 44.5 fL; WBC 9.04 10^3/uL (4.4-10.8)
[2024-03-29] MEDS: Normal Saline 1,000 ML 1000 ML IV (18:01)
[2024-03-29] MEDS: Ketorolac 15 MG/ML VIAL IVP (18:03)
[2024-03-29 18:11] LABS: ALT 18 U/L (14-59); AST 14 U/L (15-37); Alkaline Phosphatase 52 U/L (46-116); BUN 15 mg/dL (7-18); Bilirubin, Total 0.7 mg/dL (0.2-1.0); CREATININE 0.8 mg/dL (0.55-1.02); Chloride 104 mmol/L (98-107); Estimated GFR 77.27 (mL/min/1.73m2); Glucose 77 mg/dL (74-106); Potassium 3.4 mmol/L (3.5-5.1); Sodium 141 mmol/L (136-145); Total Protein 6.7 g/dL (6.4-8.2)
[2024-03-29] MEDS: Normal Saline - Diluent 50 ML VIAL IJ ×2 (18:20→19:05)
[2024-03-29 18:51] LABS: Bilirubin Negative (Negative); Blood Negative (Negative); Clarity Clear (Clear); Glucose Negative (Negative); Ketones Negative (Negative); Leukocyte Esterase Negative (Negative); Nitrite Negative (Negative); Urobilinogen 0.2 mg/dL (Up to 0.2); pH 6.5 (5-8)
[2024-03-29] MEDS: Lidocaine 5% Patch 1 PATCH TP (18:54)
[2024-03-29 19:00] VITALS: PULSE 75
[2024-03-29] MEDS: Omnipaque 350 MG/ML 100 ML BTL IJ (19:04)
--- NOTE | 2024-03-29 20:12 | DI.VRAD_ITS ---
PROCEDURE INFORMATION: Exam: CT Chest With Contrast; Diagnostic Exam date and time: 03/29/2024 7:05 PM Age: 73 years old Clinical indication: Other: Fall stairs, right rib flank and back pain TECHNIQUE: Imaging protocol: Diagnostic computed tomography of the chest with contrast. Contrast material: 350; Contrast volume: 100 ml; Contrast route: INTRAVENOUS (IV); COMPARISON: XR PORTABLE CHEST AP 11/12/2022 5:01 PM FINDINGS: Lungs: No consolidation. No ground-glass opacity. Bands of tissue are noted in the lower lobes. Pleural spaces: No pleural effusion. No pneumothorax. Heart: No cardiomegaly. No pericardial effusion. Mild coronary artery calcifications. Lymph nodes: Unremarkable. No enlarged lymph nodes. Vasculature: The thoracic aorta is intact. No aneurysm. No dissection. Mild plaque. Unremarkable arch vessel origins. Diaphragm: Moderate hiatal hernia. Bones/joints: Moderate kyphosis. Disc space narrowing and endplate sclerosis are noted at multiple levels in the midthoracic spine. The sternum is intact. Moderate arthropathy is noted in both shoulders. Fractures are noted at the lateral right 10th and 11th ribs; see financial services sales representative axial image 50 series 5. There are no left-sided rib fractures observed. There are no ribs fractured in two or more places. Soft tissues: Unremarkable. IMPRESSION: 1. No acute intrathoracic injury. 2. Fractures at the right 10th and 11th ribs. PROCEDURE INFORMATION: Exam: CT Abdomen And Pelvis With Contrast Exam date and time: 03/29/2024 7:05 PM Age: 73 years old Clinical indication: Other: Fall stairs, right rib flank and back pain TECHNIQUE: Imaging protocol: Computed tomography of the abdomen and pelvis with contrast. Contrast material: 350; Contrast volume: 100 ml; Contrast route: INTRAVENOUS (IV); COMPARISON: CT LUMBAR SPINE RECONS 03/29/2024 7:05 PM FINDINGS: Lungs: Please see CT chest dictated separately. Liver: Liver is normal without laceration or hematoma. Gallbladder and bile ducts: Normal. No calcified stones. No ductal dilation. Pancreas: No pancreatic injury or hematoma. Spleen: Spleen is normal without laceration or hematoma. No perisplenic hemorrhage or fluid seen. Adrenal glands: Normal. No mass. Kidneys and ureters: Kidneys are intact without laceration or hematoma. No perinephric fluid or hematoma seen. Stomach and bowel: Unremarkable stomach. Nondilated small bowel. Negative for inflammatory changes around the colon. Appendix: No evidence of appendicitis. Intraperitoneal space: Negative for intraperitoneal free fluid or free air. Vasculature: No aortic dissection. No aneurysm. Mild plaque. No occlusion or stenosis in the superior mesenteric artery. Moderate-severe stenosis noted in both renal arteries. Lymph nodes: Unremarkable. No enlarged lymph nodes. Urinary bladder: Unremarkable as visualized. Reproductive: The uterus is surgically absent. Negative for adnexal mass or cyst. Bones/joints: Unremarkable. No acute fracture. Soft tissues: No significant abdominal wall hematoma or other fluid collection. IMPRESSION: Negative for acute traumatic injury in the abdomen or pelvis. Dictated and Authenticated by: Edwin Mckeon MD. Ordering:JEAN-CLAUDE Chung MD
--- NOTE | 2024-03-29 20:23 | DI.VRAD_ITS ---
PROCEDURE INFORMATION: Exam: CT Lumbar Spine Without Contrast Exam date and time: 03/29/2024 7:05 PM Age: 73 years old Clinical indication: Other: Fall down stairs TECHNIQUE: Imaging protocol: Computed tomography of the lumbar spine without contrast. COMPARISON: CT CHEST/ABD/PEL W 03/29/2024 7:05 PM FINDINGS: Bones/joints: No acute fracture. No endplate erosion. Marked sclerosis and numerous small subchondral cysts are present at the sacroiliac joints, both iliac and sacral sides. There is no ankylosis. There is no widening of the sacroiliac joints. On the earlier CT chest abdomen pelvis, the symphysis pubis is normal. T12-L1: Mild facet arthropathy. No spinal canal stenosis. No neural foraminal narrowing. L1-L2: Mild disc space narrowing with disc bulge. Mild facet arthropathy. No spinal canal stenosis. No neural foraminal narrowing. L2-L3: Mild disc space narrowing. Mild disc bulge. Mild facet hypertrophy and osteophyte formation. No spinal canal stenosis. No neural foraminal narrowing. L3-L4: Mild disc bulge. Moderate facet arthropathy. Mild ligamentum flavum thickening. Mild spinal canal stenosis. No neural foraminal narrowing. L4-L5: Degenerative anterolisthesis 6 mm. Moderate disc space narrowing. Mild disc bulge. Severe facet arthropathy. Mild spinal canal stenosis. Moderate bilateral neural foraminal narrowing. L5-S1: Degenerative anterolisthesis 5 mm. Mild disc space narrowing. Mild broad-based disc bulge. Severe facet arthropathy. Mild spinal canal stenosis. Mild bilateral neural foraminal narrowing. Kidneys and ureters: No hydronephrosis. Soft tissues: No paraspinal fluid collections. Normal symmetric psoas muscles. IMPRESSION: 1. No acute fracture. 2. Multilevel degenerative disc disease and facet arthropathy. 3. Sites of narrowing as described. 4. Bilateral symmetric inflammatory sacroiliitis. Consider ankylosing spondylitis or sacroiliitis associated with inflammatory bowel disease. Dictated and Authenticated by: Edwin Mckeon MD. Ordering:JEAN-CLAUDE Chung MD
== END 2024-03-29 21:33 | disposition home or self-care (01) ==
PROVIDERS: Emergency Provider Emergency Medicine; PCP Family Medicine
DX: S22.41XA Multiple fractures of ribs, right side, initial encounter for closed fracture (principal); W10.9XXA Fall (on) (from) unspecified stairs and steps, initial encounter
CPT/HCPCS: 36415; 74177; 80053; 96361; 96374; 99285; 71260; 81003; 85025; 99283; J1885; J3490

== ENCOUNTER 2025-01-13 12:15 | Outpatient (REF) | payer OTHER, MEDICARE, SELFPAY ==
[2025-01-13 16:44] LABS: Bilirubin Negative (Negative); Blood Trace-intact (Negative); Clarity Sl Cloudy (Clear); Glucose Negative (Negative); Ketones Negative (Negative); Leukocyte Esterase Small (Negative); Nitrite Negative (Negative); Specific Gravity >= 1.030 (1.005-1.025); Urobilinogen 0.2 mg/dL (Up to 0.2); pH 6.5 (5-8)
[2025-01-13 16:54] LABS: Bacteria Few HPF (Negative); C & S Indicated? No/Sq. Contamination; Casts Negative LPF (Negative); Crystals Negative HPF (Negative); Epithelial Cells Moderate HPF (Negative); Mucus Negative (Negative); Other Cells Few Transitional (Negative); RBC 0-2 HPF (0-2); WBC 20-50 HPF (0-5)
== END 2025-01-13 12:16 | disposition home or self-care (01) ==
LOC: LBN 12:15
PROVIDERS: PCP Family Medicine; Visit Provider Family Medicine
DX: R30.0 Dysuria (principal); B96.29 Other Escherichia coli [E. coli] as the cause of diseases classified elsewhere
CPT/HCPCS: 87077; 81003; 81015; 87086; 87186

== ENCOUNTER 2025-01-14 18:32 | Outpatient (REF) | payer OTHER, MEDICARE, SELFPAY ==
[2025-01-14 18:06] LABS: ALT 19 U/L (14-59); AST 19 U/L (15-37); Alkaline Phosphatase 60 U/L (46-116); Anion Gap 7.7 mmol/L (3-11); BUN 17 mg/dL (7-18); Bilirubin, Total 0.4 mg/dL (0.2-1.0); CO2 31.3 mmol/L (21.0-32.0); CREATININE 0.9 mg/dL (0.55-1.02); Calcium 9.9 mg/dL (8.5-10.1); Calculated LDL 113 mg/dL (<100); Chloride 102 mmol/L (98-107); Cholesterol 192 mg/dL (<200); Estimated GFR 66.67 (mL/min/1.73m2); Glucose 80 mg/dL (74-106); HDL Cholesterol 51 mg/dL (>or=50); Sodium 141 mmol/L (136-145); Total Protein 6.9 g/dL (6.4-8.2); Triglyceride 142 mg/dL (<150); Vitamin B12 508 pg/mL (193-986)
== END 2025-01-14 18:33 | disposition home or self-care (01) ==
LOC: NCHCN 18:32
PROVIDERS: PCP Family Medicine; Visit Provider Family Medicine
DX: I10 Essential (primary) hypertension (principal); K29.60 Other gastritis without bleeding
CPT/HCPCS: 80053; 80061; 82607

== ENCOUNTER 2025-07-28 09:44 | Outpatient (CLI) | payer OTHER, MEDICARE, SELFPAY ==
[2025-07-28 15:15] LABS: Vitamin B12 546 pg/mL (193-986); Vitamin D 25 Total 86 ng/mL (30-100)
[2025-07-28 18:02] LABS: Hemoglobin A1C 5.2 % (<5.7)
== END 2025-07-28 09:45 | disposition home or self-care (01) ==
LOC: LOS 09:45
PROVIDERS: PCP Family Medicine; Visit Provider Family Medicine
DX: R79.89 Other specified abnormal findings of blood chemistry (principal); M85.80 Other specified disorders of bone density and structure, unspecified site; E11.9 Type 2 diabetes mellitus without complications
CPT/HCPCS: 36415; 82306; 82607; 83036

== ENCOUNTER → 2025-10-15 00:51 | Outpatient (CLI) | payer OTHER, MEDICARE, SELFPAY ==
--- NOTE | 2025-10-15 07:45 | DI.US_ITS ---
APPROVED REPORT EXAM: Stress Echocardiogram Stress Nurse: Oralia Saba RN Ordering Provider: SWETA GALE, Contact Number: [phone] HR: 75 bpm BP: 134/76 mmHg Rhythm: Sinus Rhythm; P Pulmonale. Indications: Aortic Stenosis. Medical History Medical History: HLD; HTN; HFpEF; Hiatal Hernia; Major Depressive Disorder; OCD; Osteopenia; Heart Murmur; Generalized Anxiety Disorder; GERD; Reactive Airway Disease. Medications: Spironolactone; Omeprazole; Clonazepam; Duloxetine; Zolpidem; Melatonin; Albuterol; Ipratropium/Albuterol; Oxybutynin; Escitalopram; Annuity Ellipta; Tirzepatide. Allergies: Hydrochlorothiazide; Latex; Morphine; Venlafaxine; Atenolol; Bupropion; Lisinopril. Cardiac Risk Factors: Family Hx; HLD; HTN; Asthma. Previous Cardiac Procedures: None. Pretest Chest Pain Characteristics: Mild shortness of breath (from walking in from the parking lot). Exercise History: Sedentary. Physical Disabilities: None. Stress Test Details Test: Exercise stress testing was performed using a Cezar protocol. Rest Stress HR Resting HR Supine: 75 bpm Max Heart Rate (APMHR): 144 bpm Resting HR Standin bpm Target HR (85% APMHR): 122 bpm Max HR Achieved: 133 bpm % of APMHR: 92 Recovery HR: 77 bpm HR response to stress: Normal HR response to stress. BP Resting BP Supine: 134/76 mmHg Resting BP Standin/84 mmHg Max BP: 150/84 mmHg Recovery BP: 124/60 mmHg BP response to stress: Normal blood pressure response to stress. ECG Resting ECG: Sinus Rhythm. Ectopy: None. Comment: P Pulmonale. Stress ECG: Sinus Tachycardia. ST Change: Horizontal ST depression, Upsloping ST depression. Lead(s): II, III, aVF. Stage: [address] Deviation: 1-2.5 mm Arrhythmia: None. Recovery ECG: Sinus Rhythm. Recovery ST Change: Horizontal ST depression, Upsloping ST depression. Lead(s): II, III, aVF. Recovery ST Deviation: 1-2.5 mm Recovery Arrhythmia: None. Comment: Biphasic T waves noted in diffuse leads; U waves noted in diffuse leads starting in Stage 3 of recovery. Clinical Reason for Termination: Target HR Achieved. Stress Symptoms: Mild to moderate shortness of breath. Exercise duration: 04 min15 sec Highest Stage Reached: Stage 2: 2.5 mph at 12% grade. Exercise capacity: 5 METs Angina Score: None Rate Pressure Product: [id number] Stress ECG Conclusion 1. Resting electrocardiogram showed low voltage 2. Patient exercised on the Cezar protocol completed a workload of 5 METS, exercising 1 minute and 15 seconds of stage II 3. Normal heart rate and blood pressure response to exercise. The patient achieved 92% of maximal predicted heart rate for age 4. The electrocardiographic portion of the test did not demonstrate any myocardial ischemia 5. There were no significant dysrhythmias 6. Resting echocardiogram showed an EF of 60%. Postexercise echo showed augmented contractility of all segments and improved EF to greater than 70%. There was no echocardiographic evidence of myocardial ischemia Stress Test Summary STAGE Time (mins) Speed (mph) Grade (%) HR BP SYMPTOMS METS Supine 75 134/76 Pt. c/o mild shortness of breath. Standing 89 150/84 Pt. c/o mild shortness of breath. 1 3 1.7 10 125 Pt. c/o mild shortness of breath. 4.6 2 6 2.5 12 133 Pt. c/o mild-moderate shortness of breath. 7 1 min recovery 106 134/68 Pt. c/o mild shortness of breath. 3 min recovery 77 150/68 Pt. c/o minimal shortness of breath. 6 min recovery 77 124/60 Pt. states that all shortness of breath has resolved. Pt. performed a stress echocardiogram ETT using the Cezar protocol. Stress test was stopped when pt. achieved a heart rate higher than the target heart rate and requested to stop. Pt. was noted to have mild-moderate shortness of breath at the peak of exercise, which resolved by the end of recovery. Pt. was noted to have horizontal and upsloping ST depressions ranging from 1-2.5 mm in leads II, III, and aVF during the end of Stage 1 and during Stage 2 of exercise, as well as during Stage 1 of recovery. Horizontal and upsloping ST depressions recovered to baseline prior to the end of the stress test. Pt. was noted to have peaked P waves (P pulmonale) throughout the stress test. Pt. was noted to have biphasic T waves and U waves that appeared in diffuse leads during Stage 3 of recovery. T waves appeared to recover slightly to baseline by the end of the stress test. U waves were still present. Pt. was conversing pleasantly with nursing staff upon leaving the Stress Lab. Pt. left ambulatory in no apparent distress. Echo Findings The Pre-Stress Echocardiogram showed normal left ventricular contractility with an estimated Ejection Fraction of about 60-65%. The Peak-Stress Echocardiogram showed normal left ventricular contractility with an estimated Ejection Fraction of about >70%. Conclusion Resting electrocardiogram showed low voltage Patient exercised on the Cezar protocol completed a workload of 5 METS, exercising 1 minute and 15 seconds of stage II Normal heart rate and blood pressure response to exercise. The patient achieved 92% of maximal predicted heart rate for age The electrocardiographic portion of the test did not demonstrate any myocardial ischemia There were no significant dysrhythmias Resting echocardiogram showed an EF of 60%. Postexercise echo showed augmented contractility of all segments and improved EF to greater than 70%. There was no echocardiographic evidence of myocardial ischemia
== END ==
LOC: DI 00:51
PROVIDERS: PCP Family Medicine; Visit Provider Family Medicine
DX: I35.0 Nonrheumatic aortic (valve) stenosis (principal)
CPT/HCPCS: 93350; 93017